=== PATIENT | female | born 1950 ===

== ENCOUNTER 2016-10-24 10:43 | Observation (INO) | payer MEDICARE, OTHER ==
[2016-10-24] MEDS ORDERED: NORMAL SALINE 1,000 ML IV ONE ×2 (11:01→13:07)
--- OUTSIDE RECORDS SUMMARY | 2016-10-24 11:05 | XMS REPORT | Continuity of Care Document ---
:1950 Author Organization [facility] [place] [address] Care Team Providers Name Role Phone Unavailable Primary Care Provider Unavailable Source Comments This disclosure is being made pursuant to the [employer] program and maynot contain all information available regarding this patient.[facility] Active Allergies and Adverse Reactions Not on File Current Medications Be aware that medications may not be up to date as of this document. Alwaysverify current medications with the patient. Not on file Active Problems Not on file Social History Tobacco Use Types Packs/Day Years Used Date Never Assessed Plan of Care Health Maintenance Due Date Last Done Comments Retired-Pertussis Vaccine Adult 1970 Retired-Tetanus Vaccine Adult 1970 Pap Smear 02/04/1972 Mammogram 1991 Colonoscopy 2001 Well Adult Visit 2001 Zoster Vaccine 60+ 2011 Retired-INFLUENZA VACCINE 04/01/2015 Results from Last 3 Months Not on file
--- OUTSIDE RECORDS SUMMARY | 2016-10-24 11:06 | XMS REPORT | Continuity of Care Document ---
:1950 Author Organization [facility] ([facility]) Address [address] [place] [address] Phone [phone] Care Team Providers Name Role Phone Amanda Duncan Primary Care Provider [phone] Source Comments This disclosure is being made pursuant to the Care Everywhere program, applicable federal and state laws, and may not contain all informaitonavailable regarding this patient.[facility] ([facility]) Active Allergies and Adverse Reactions No Known Allergies Current Medications Prescription Sig. Disp. Refills Start End Status Date Date gabapentin 300 mg Take 300 mg by Active capsule mouth 2 times daily. escitalopram oxalate Take 20 mg by 1 07/01/20 Active 20 mg tablet mouth daily. 15 clopidogrel 75 mg Take 75 mg by 01/16/20 Active tablet mouth daily. [address] the 03/07/20 Active SL tablet tongue every 5 13 minutes as needed. cholecalciferol Take 1,000 Units Active (VITAMIN D3) 1,000 by mouth daily. unit capsule insulin glargine Inject 30 Units Active (LanTUS SOLOSTAR) subcutaneously 2 100 unit/mL (3 mL) times daily. injection pen levothyroxine 200 Take 200 mcg by Active mcg tablet mouth every morning before breakfast. lisinopril 20 mg Take 20 mg by Active tablet mouth 2 times daily. atorvastatin 80 mg Take 80 mg by Active tablet mouth every evening. cyanocobalamin Take 500 mcg by Active (VITAMIN B-12) 500 mouth daily. mcg tablet metoPROLol tartrate Take 75 mg by Active 50 mg tablet mouth 2 times daily. aspirin 81 mg EC Take 81 mg by Active tablet mouth daily. isosorbide Take 60 mg by Active mononitrate 60 mg CR mouth every tablet morning. metFORMIN 500 mg XR Take 1,000 mg by Active tablet mouth 2 times daily. acetaminophen 325 mg Take 2 tablets 120 tablet 3 09/20/19 Active tablet (650 mg total) by 17 mouth every 4 hours. iron 18 mg tablet Take 18 mg by Active mouth daily. HYDROmorphone 2 mg Take 1 tablet (2 40 tablet 0 10/20/19 Active tablet mg total) by mouth 17 every 4 hours as needed. dexamethasone 4 mg Take 2 tab (8 mg) 4 tablet 10/20/19 Active tablet by mouth daily on 17 Days 2 and 3 after chemo. ondansetron 8 mg Take 1 tablet (8 12 tablet 10/20/19 Active tablet mg total) by mouth 17 every 8 hours as needed. PROchlorPERAZINE 10 Take 1 tablet (10 30 tablet 10/20/19 Active mg tablet mg total) by mouth 17 every 6 hours as needed. lidocaine 5 % patch Apply 1 patch on 30 Patch 10/20/19 Active the skin daily. 17 Apply for 12 hours and remove for 12 hours, then repeat cycle. docusate 100 mg Take 1 capsule 90 capsule 3 09/20/19 Discontinued capsule (100 mg total) by 17 017 mouth 2 times daily. enoxaparin 40 mg/0.4 Inject 40 mg 28 Syringe 0 09/20/19 Discontinued mL injection syringe subcutaneously 17 017 daily. HYDROmorphone 2 mg Take 1-2 tablets 60 tablet 0 09/20/19 Discontinued tablet (2-4 mg total) by 17 017 mouth every 4 hours as needed. simethicone 80 mg Take 1 tablet (80 90 tablet 3 09/20/19 Discontinued chewable tablet mg total) by mouth 17 017 4 times daily as needed for Flatulence. sennosides 8.6 mg Take 1-2 tablets 90 tablet 3 09/20/19 Discontinued tablet (8.6-17.2 mg 17 017 total) by mouth 2 times daily as needed. sodium & potassium Take 1 tablet (250 42 tablet 0 09/20/19 phosphates 250 mg mg total) by mouth 17 017 tablet 3 times daily for 14 days. HYDROmorphone 2 mg Take 1 tablet (2 20 tablet 0 09/30/19 Discontinued tablet mg total) by mouth 17 017 every 4 hours as needed. Earliest Fill Date: 09/29/16 HYDROmorphone 2 mg Take 1 tablet (2 40 tablet 0 09/30/19 Discontinued tablet mg total) by mouth 17 017 every 4 hours as needed. trimethoprim-sulfame Take 1 tablet by 14 tablet 0 10/05/19 thoxazole 160-800 mg mouth 2 times 17 017 per tablet daily for 7 days. lidocaine 5 % patch Apply 1 patch on 30 Patch 3 10/20/19 Discontinued the skin daily. 17 017 Apply for 12 hours and remove for 12 hours, then repeat cycle. Active Problems Problem Noted Date BRCA1 positive 10/19/2016 Acute blood loss anemia 09/20/2016 Hypokalemia 09/20/2016 Acute postoperative pain 09/20/2016 Ovarian cancer on right 09/17/2016 Angina, class II 08/26/2016 Multiple sclerosis 07/15/2015 Hypothyroidism 07/15/2015 Hyperlipidemia 07/15/2015 Hypertension 07/15/2015 Atherosclerosis of coronary artery bypass graft of [place] heart without 2013 angina pectoris Presence of stent in coronary artery 01/22/2013 Presence of coronary angioplasty implant and graft 01/22/2013 Back pain 01/04/2013 Peripheral vascular disease 12/22/2012 Claudication 12/22/2012 Special screening for malignant neoplasms, colon 04/04/2012 Overview: Overview: Family history of colon cancer in father at age 67. Status post colonoscopy, December,. Status post colonoscopy 02/15/2012 with finding of a 3-4 cm villous adenoma with high-grade dysplasia of the right colon, and a less than 1 cm cecal polyp with tubular adenoma histology. Repeat colonoscopy in one year. Stress incontinence in female 12/14/2011 Chronic coronary artery disease 09/01/1996 Overview: CARDIOVASCULAR PROCEDURE CATH Cath 100% pLAD, 80% dCx, 100% OM, 90% RPDA, DAVIDSON-LAD open but sequential to Cx occluded, V-PDA open. Mild ant-lat hypo LVEF 50% 04/17/07 Cath:LMCA: Abnormal.20% distal LM. LAD: 100% proximal LAD. LCx: Abnormal.90% small distal OM (1.5 mm vessel) RCA: Abnormal.Moderate diffuse irrregular disease. 100% ostium RPDA. 60% focal mid and distal RCA.Ramus: Abnormal.30% proximal IR. Cardiac Grafts- There is a DAVIDSON graft that originates at the DAVIDSON and attaches to the 1st Diag.Graft fills large Dx distal and proximal to graft insertion.- There is a Vein graft that originates at the Aorta Right and attaches to the R PDA.80% RPDA distal to graft insertion - new since cath 04/17/07 - 2.0 mm vessel.- There is a Vein graft that originates at the Aorta Left and attaches to the Mid LAD.LAD fills retrograde with diffuse disease proximal to graft, LAD 100% distal to SP arising immediately distal to graft insertion. 04/09/2012 Cath:Very mild posterobasal hypokinesis, est. LVEF 55%. 20% distal LM, 100% proximal LAD, 90% small M3, diffuse 30-50% RCA, 60% just proximal to crux, 80% proximal RPDA, 80% and 90% mid RPDA distal to SVG. Patent SVG-LAD with diffuse disease proximal and distal to graft insertion, patent SVG-RPDA with 80% and 90% focal stenoses just distal to graft insertion, patent DAVIDSON-Dx. Successful intervention on Cx-M3 - 2.012 [place] PTCA, 2.25/07 Xience Xpedition to final 0% at site of stent. Diffuse disease in the M3 distal to the stent. Successful intervention on RPDA through the SVG - 2.0/12 [place] PTCA, . Xience Xpedition to final 0%. 11/23/2012 ECHO Echo: Echo reported normal LV function 04/19/2014 VASCULAR VERONICA: Normal 11/23/2012 Exercise VERONICA:Right:Resting and post exercise VERONICA: within normal limits. Greater toe pressure 115mmHg.Left: Resting and post exercise VERONICA: within normal limits. Greater toe pressure 103mmHg.ABIs with exercise performed bilaterally. 08/16/2013 Vasodepressor syncope Resolved Problems Problem Noted Date Resolved Date Periorbital edema 07/15/2015 08/26/2016 Overview: - recurrent periorbital edema with suspected cellulitis. Last Assessment & Plan: - Etiology of periorbital edema is unclear. - Pt with recurrent admission every 2-3 months for the last 2 years; treated with IV/PO antibiotics. Per family report pt has fever and constitutional symptoms during this episodes. - Picture of the most recent episode shows bilateral periorbital edema with blotchy erythema over the eyelids (most intense), and central face (forehead, bridge of nose, chin); not consistent with rina sipela. Episodes not always unilateral. No h/o facial trauma recently. - Reported prior W/U by ENT and ophthalmology has been negative. - Will request more records from [facility] including: discharge summaries, H&P, consultation reports, images from prior CTs/ MRIs. - Labs today: CBC, BMP, LFT, ESR/CRP. - Follow up in ID clinic in 4 weeks after review of the information above. - If episodes recur prior to appointment, pt is encouraged to come to [facility] ED if possible for further evaluation. Type 2 diabetes mellitus 12/28/2010 08/25/2016 Most Recent Encounters Date Type Specialty Providers Description 10/20/2016 Telephone Cancer Center Deborah Cordova, Chief Comp: RN Appointment Info 10/19/2016 Office Visit Cancer Center Default, Other Dx: Ovarian cancer Billg - Defo on right Cynthia Hugo RD LD 10/19/2016 Office Visit Cancer [place] Default, Other Dx: BRCA1 genetic Billg - 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 (Primary Dx) Reny Palmer CGC 10/19/2016 Hospital Cancer Infusion Juan Francisco De Oliveira, Dx: Rib pain on left Encounter Center MD side (Primary Dx) 10/19/2016 Office Visit Pathology Juan Francisco De Oliveira, Chief Comp: Patient MD Reported Reason For Lab Services, Visit Pfp 10/19/2016 Office Visit OBG Reproductive Juan Francisco De Oliveira, Dx: Chemotherapy MD management, Clinic, Paper Reeler Onc encounter for Advanced (Primary Dx) Practice Provider 10/19/2016 Orders/Notes Account Liaison Tia Diaz, Chief Comp: Other ACADEMIC AFFAIRS SPECIALIST 10/19/2016 Pharmacy Visit 10/18/2016 Office Visit [facility] Reproductive Juan Francisco De Oliveira, Chief Comp: Patient MD Reported Reason For Clinic, Paper Reeler Onc Visit Advanced Practice Provider 10/14/2016 Telephone Cancer Center Deborah Cordova, Chief Comp: RN Follow-up 10/12/2016 Telephone Cancer Center Jeni Nicholson Chief Comp: Cindy Baez RN 10/12/2016 Orders/Notes Cancer Center Jeni Nicholson RN 10/12/2016 Telephone Cancer Center Reny Palmer Chief Comp: Discuss A, CGC Test Results 10/06/2016 Office Visit O[facility] Reproductive Srinivasa, Chief Comp: Patient MD Mario Alberto Reported Reason For Visit 10/06/2016 Orders/Notes Obstetrics Uri, [place] K, 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 10/04/2016 Office Visit Cancer Center Default, Other Dx: Family history Billg - Defo of breast cancer Juan Francisco De Oliveira, (Primary Dx) Reny Al, DOT 10/04/2016 Office Visit [facility] Repro[facility] Srinivasa, Dx: Postoperative MD Mario Alberto urinary tract Juan Francisco De Oliveira, infection (Primary MD Dx) 10/04/2016 Office Visit Internal Medicine - Shahram Colón, Dx: Low hemoglobin Primary MD (Primary Dx) Cynthia An, ANNALISE 10/04/2016 Office Visit Pathology Cynthia An, Chief Comp: Patient ANNALISE Reported Reason For Lab Services, Visit Irl 09/29/2016 Telephone [facility], Chief Comp: RN Follow-up 09/29/2016 Telephone [facility], Chief Comp: Return RN Call 09/29/2016 [facility] Cynthia Cevallos, Dx: Ovarian cancer, RN unspecified laterality (Primary Dx) 09/21/2016 Nurse Triage General Care Candy Baumann Chief Comp: IP Inpatient - Adult E, superintendent distribution Follow-up Call 09/21/2016 Orders/Notes Cancer [place] Juan Francisco De Oliveira MD 09/21/2016 Orders/Notes Cancer [place] Juan Francisco De Oliveira MD 09/17/2016 [facility] Juan Francisco De Oliveira, Dx: Adnexal mass - Encounter Inpatient - Adult (Primary Dx) 09/20/2016 09/17/2016 Surgery General Surgery Juan Francisco De Oliveira, OOPHORECTOMY, ABDOMINAL, Abd Hernia repair 08/31/2016 Office Visit [facility] Repro[facility] Juan Francisco De Oliveira, Chief Comp: Patient MD Reported Reason For Visit 08/31/2016 Office Visit Internal Medicine - Default, Other Chief Comp: Patient Specialty Billg - Defo Reported Reason For (Zo06), Msc Surg Visit Co-Managemnt Cl 08/27/2016 Telephone Cardiac Gissell Fregoso Chief Comp: Results Rehabilitation 08/27/2016 Orders/Notes Heart and Vascular Gissell Fregoso MD 08/27/2016 Telephone Internal Medicine - Cynthia An, Chief Comp: Primary 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 Appointment Request 08/26/2016 [facility] Heart and Vascular Reva, Dx: Syncopal Encounter MD Karyna episodes 08/26/2016 [facility] Heart and Vascular Jose, Chief Comp: Patient Encounter MD Berenice Reported Reason For Visit 08/26/2016 Office Visit OBG Reproductive Juan Francisco De Oliveira, Dx: Ovarian mass, MD right (Primary Dx) 08/26/2016 Office Visit Internal Medicine - Default, Other Dx: Anemia, Specialty Billg - Defo unspecified type Bethany Rueda, (Primary Dx) (Zo06), Msc Surg Co-Managemnt Cl 08/26/2016 Office Visit Pathology Juan Francisco De Oliveira, Dx: Syncopal MD episodes Lab Services, Pf 08/26/2016 [facility] Radiology Avelino Obrien, Dx: Syncopal Encounter MD episodes 08/26/2016 [facility] Anesthesiology Juan Francisco De Oliveira, Chief Comp: Patient Encounter MD Reported Reason For Visit 08/26/2016 Office Visit Cardiac Gissell Fregoso MD Dx: Ischemic Rehabilitation cardiomyopathy (Primary Dx) 08/26/2016 Office Visit Cardiac Gissell Fregoso MD Dx: Murmur Rehabilitation 08/25/2016 Anesthesia Event General Surgery Corbin Sánchez 08/23/2016 Telephone Cardiac Gissell Fregoso MD Chief Comp: Other Rehabilitation 08/09/2016 [facility] Radiology Juan Francisco Fuchs, Dx: Syncopal Encounter MD episodes 08/09/2016 Office Visit OBG Reproductive Juan Francisco De Oliveira, Dx: Syncopal MD episodes (Primary Dx) Immunizations Name Dates Previously Given Next Due Influenza 06/01/2016,05/10/2015,05/09/2014 Influenza, PF 04/26/2013,05/04/2012 Influenza, unspecified 06/01/2015 Pneumococcal Polysaccharide, PPSV23 07/15/2014,06/10/2014,04/24/2008 (Pneumovax 23) Social History Tobacco Use Types Packs/Day Years Used Date Never Smoker Smokeless Tobacco: Never Used Last Filed Vital Signs Vital Sign Reading Time Taken Blood Pressure 135/64 10/19/2016 4:25 PM CDT Pulse 57 10/19/2016 4:10 PM CDT Temperature 36.1 C (97 F) 10/19/2016 12:33 PM CDT Respiratory Rate 16 10/19/2016 12:33 PM CDT Height 1.651 m (5' 5") 10/04/2016 12:38 PM 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 Weight 63.95 kg (140 lb 15.8 oz) 10/19/2016 9:35 AM CDT Body Mass Index 23.46 10/19/2016 9:35 AM CDT Oxygen Saturation 100% 10/19/2016 12:33 PM CDT Plan of Care Date Type Specialty Providers Description 03/21/2017 Appointment OBG Reproductive De OliveiraJuan Francisco castro MD Chief Comp: Patient [address] [place] [address] Visit [phone] (Fax) Health Maintenance Due Date Last Done Comments Hepatitis B Vaccine (1 of 3 - 1950 Primary Series) Tdap Vaccine 1962 DIABETIC: Cholesterol 1969 Diabetic: Hdl 1969 Diabetic: Ldl 1969 DIABETIC: Microalbumin 1969 DIABETIC: Triglycerides 1969 Td Vaccine 1969 Cervical Cancer Screening 1981 Mammogram 1991 Colonoscopy 02/02/2001 Zoster Vaccine 2011 DIABETIC: Foot Exam 07/15/2015 DIABETIC: Retinal Eye Exam 07/15/2015 Osteoporosis Screening (DXA 02/04/2016 Bone Density) Pneumococcal Vaccine (1 of 2 02/04/2016 07/15/2014, - PCV13) 06/10/2014, 04/24/2008 DIABETIC: Hemoglobin A1C 04/06/2017 10/04/2016 HCV Screening Completed 07/15/2015 Influenza Vaccine: Seasonal Completed 06/01/2016, Additional history exists 06/01/2015, 05/10/2015 Procedures from Last 3 Months Procedure Name Priority Date/Time Associated Comments Diagnosis ABSTRACTED BY Routine 09/19/2016 9:07 PM Adnexal mass Results for this BILLING STAFF PLUMBING ENGINEER procedure are in the results section. OOPHORECTOMY, 09/17/2016 7:30 AM Adnexal mass ABDOMINAL, Abd PLUMBING ENGINEER Hernia repair Case Notes hernia repair + Unilateral salpingooophorectomy Results from Last 3 Months DIFFERENTIAL (10/19/2016 9:20 AM)Only the most recent of3 resultswithin the time period is included. Component Value Range % Neutrophils-Auto Diff 63.9 % Neutrophils-Auto Diff 4700 2175-6988 /MM3 % Lymphocytes-Auto Diff 22.9 % Lymphocytes-Auto Diff 2520 451-7570 /MM3 % Monocytes-Auto Diff 8.8 % Monocytes-Auto Diff 650 130-860 /MM3 % Eosinophils-Auto Diff 3.7 % Eosinophils-Auto Diff 270 40-390 /MM3 % Basophils 0.4 % Basophils-Auto Diff 30 10-136 /MM3 % Immature Granulocytes-Auto Diff 0.3 % Immature Granulocytes-Auto Diff 20 /MM3 Specimen Whole Blood CBC (COMPLETE BLOOD COUNT) (10/19/2016 9:20 AM)Only the most recent of3 resultswithin the time period is included. Component Value Range WBC Count 7.4 3.7-10.5 K/MM3 RBC Count 3.35(L) 4.00-5.20 M/MM3 Hemoglobin 10.2(L) 11.9-15.5 g/dL Hematocrit 31(L) 35-47 % MCV (Mean Corpuscular Volume) 94 82-99 FL MCH (Mean Corpuscular Hemoglobin) 30 25-35 PG MCHC (Mean Corpuscular Hemoglobin Concentration) 33 32-36 % Platelet Count 254 150-400 K/MM3 MPV (Mean Platelet Volume) 10.1 9.4-12.3 FL RBC Dist Width-STD 47.0(H) 36.4-46.3 FL RBC Distrib Width 13.8 9.0-14.5 % Nucleated RBC 0 /100 WBC Specimen Whole Blood CANCER ANTIGEN 125 (10/19/2016 9:20 AM)Only the most recent of2 resultswithin the time period is included. Component Value Range CA-125 (Cancer Antigen 125) 43(H) <=34 U/mL Specimen Blood CREATININE (10/19/2016 9:20 AM) Component Value Range Creatinine 1.1(H)Comment: 0.5-1.0 mg/dL Creatinine switched to enzymatic method on 12/08/2010.GFR equation switched to IDMS-traceable MDRD equation on 12/08/2010. Calculated GFR values are not valid in clinical settings where serum creatinine is changing. Calculated GFR 50(L) >60 mL/min/1.73 m2 Specimen Blood BILIRUBIN, TOTAL (10/19/2016 9:20 AM) Component Value Range Bilirubin Total 0.3 <=1.2 mg/dL Specimen Blood CBC WITH DIFFERENTIAL (10/19/2016 9:20 AM)Only the most recent of3 resultswithin the time period is included. Specimen Whole Blood Narrative The following orders were created for panel order CBC WITH DIFFERENTIAL. Procedure Abnormality Status --------- ------ CBC (COMPLETE BLOOD COUNT)[[id number]] AbnormalFinal result DIFFERENTIAL[[id number]] Final result Please view results for these tests on the individual orders. MISCELLANEOUS TEST, GENETIC (10/04/2016 3:21 PM) Component Value Range Miscellaneous Test, Genetic See ScanComment: Find scanned test results for Ensyn CDx with hereditary breast and ovarian cancer panel by going to the Order Report, then clicking the Results Document hyperlink. For [employer] user the scan result report is not available, please contact physician for details. Specimen Other URINE MICROSCOPIC (10/04/2016 2:53 PM) Component Value Range White Blood Cells, Urine 20(H) 0-5 /HPF Red Blood Cells, Urine 2 0-2 /HPF Squamous Epithelial Cells, Urine 120(H) <=10 /LPF Specimen Urine URINALYSIS (10/04/2016 2:53 PM) Component Value Range Color, Urine Yellow Straw, Pale Yellow, Yellow, Clear, None Clarity, Urine Clear Clear pH, Urine 6.0 <9.0 Glucose, Urine Negative Negative Blood, Urine Negative Negative Ketones, Urine Negative Negative Protein, Urine 1+(A) Negative Urobilinogen, Urine 1+(A) Normal Bilirubin, Urine Negative Negative Leukocyte Esterase, Urine 3+(A) Negative Nitrite, Urine Negative Negative Spec Centre, Urine 1.020 1.000-1.030 Specimen Urine URINE CULTURE, ROUTINE AEROBIC (10/04/2016 2:53 PM) Component Value Range Quantitative Culture Mixed Luna (Urogenital) suggesting an improperly collected specimen(A) Specimen Culture - Urine, Midstream clean catch SOLUBLE TRANSFERRIN RECEPTOR (10/04/2016 9:45 AM) Component Value Range Soluble Transferrin Receptor 2.4 1.9-4.4 mg/L Transferrin Receptor-Ferritin Index 0.8 <=1.5 Specimen Blood BLOOD CELL MORPHOLOGY (10/04/2016 9:45 AM) Component Value Range Large Platelet Present Specimen Whole Blood VITAMIN B12 (10/04/2016 9:45 AM)Only the most recent of2 resultswithin the time period is included. Component Value Range Vitamin B12 527Comment: 211-946 pg/mL New analytical immunoassay with different reference range instituted 06/26/2013 AT 830AM Normal 211 - 946 pg/mL [id number] - 210 pg/mL Deficient<150pg/mL Specimen Blood RETICULOCYTES (10/04/2016 9:45 AM)Only the most recent of2 resultswithin the time period is included. Component Value Range RBC Count 2.94(L) 4.00-5.20 M/MM3 Retic-% 3.0(H) 0.4-2.1 % Automated Retic, Absolute Count 88.5 12.0-130.0 K/MM3 Specimen Whole Blood IRON PANEL (IRON, TRANSFERRIN, TIBC AND % SATURATION) (10/04/2016 9:45 AM)Only the most recent of2 resultswithin the time period is included. Component Value Range Iron, Blood 52 37-145 g/dL Transferrin 185(L) 200-360 mg/dL Iron % Saturation 20Comment: 15-50 % Iron % saturation is a calculated parameter derived from the iron and transferrin plasma concentrations. Iron % saturation is not reliable when there are high ferritin concentrations greater than 1,200 ng/mL. TIBC (Total Iron Binding Capacity) 265Comment: 250-425 g/dL TIBC is a calculated parameter derived from the transferrin plasma concentration. Specimen Blood FERRITIN (10/04/2016 9:45 AM)Only the most recent of2 resultswithin the time period is included. Component Value Range Ferritin 827.2(H) 13.0-150.0 ng/mL Specimen Blood HEMOGLOBIN A1C (10/04/2016 9:45 AM) Component Value Range Hemoglobin A1c 6.0Comment: 4.8-6.0 % Glycemic Control Guidelines: Non-diabetic <6% Goal <7% Therapeutic Action >8% Estimated Average Glucose 126Comment: mg/dL The estimated average glucose (eAG) calculated from the HbA1c changed on 20/03.See Laboratory Bulletins in the Department of Pathology Laboratory Services Handbook for a full discussion.Not e that the new calculated glucose will now be lower.The A1c result is unchanged. Specimen Whole Blood BLOOD GLUCOSE, BEDSIDE (09/20/2016 11:27 AM)Only the most recent of11 resultswithin the time period is included. Component Value Range Glucose, Accu-Chek 59(L) 65-99 mg/dL Specimen Blood, capillary PHOSPHORUS (09/20/2016 7:30 AM) Component Value Range Phosphorus 1.5(L)Comment:New reference range installed 05/13/15. 2.5-4.5 mg/ dL Specimen Blood MAGNESIUM (09/20/2016 7:30 AM) Component Value Range Magnesium 1.3(L) 1.5-2.9 mg/dL Specimen Blood BASIC METABOLIC PANEL W/ CALCIUM (CHEM 8) (09/20/2016 7:30 AM)Only the most recent of4 resultswithin the time period is included. Component Value Range Sodium 135 135-145 mEq/L Potassium 3.6 3.5-5.0 mEq/L Chloride 100 95-107 mEq/L CO2 21(L) 22-29 mEq/L Anion Gap 14 8-18 mEq/L BUN 11 10-20 mg/dL Creatinine 0.9Comment: 0.5-1.0 mg/dL Creatinine switched to enzymatic method on 12/08/2010.GFR equation switched to IDMS-traceable MDRD equation on 12/08/2010. Calculated GFR values are not valid in clinical settings where serum creatinine is changing. Glucose 85Comment: 65-99 mg/dL The Expert Committee on the Diagnosis and Classification of Diabetes has defined impaired fasting glucose as greater than or equal to 100 mg/dL but less than 126 mg/dL.(Diabetes Care 28 (Suppl 1)S41,2005) Calcium 9.3 8.5-10.5 mg/dL Calculated GFR 63 >60 mL/min/1.73 m2 Specimen Blood CBC (COMPLETE BLOOD COUNT) (09/20/2016 7:30 AM)Only the most recent of4 resultswithin the time period is included. Component Value Range WBC Count 6.0 3.7-10.5 K/MM3 RBC Count 2.83(L) 4.00-5.20 M/MM3 Hemoglobin 8.6(L) 11.9-15.5 g/dL Hematocrit 27(L) 35-47 % MCV (Mean Corpuscular Volume) 95 82-99 FL MCH (Mean Corpuscular Hemoglobin) 30 25-35 PG MCHC (Mean Corpuscular Hemoglobin Concentration) 32 32-36 % Platelet Count 155 150-400 K/MM3 MPV (Mean Platelet Volume) 10.2 9.4-12.3 FL RBC Dist Width-STD 49.3(H) 36.4-46.3 FL RBC Distrib Width 14.3 9.0-14.5 % Nucleated RBC 0 /100 WBC Specimen Whole Blood TITLE ABSTRACTOR OR CASE (09/19/2016 9:07 PM) Juan Francisco Blank MD 09/19/20169:07 PM OR CASE: OOPHORECTOMY, ABDOMINAL Post-Op Procedure Note General Information: Date: 09/17/16 Time: 729 Location: MAIN OR OR Room: [facility] OR Service: Gynecology Log ID: [id number] Operation/Procedure: Exploratory Laparotomy Lysis of Adhesions Bilateral Salpingo Oophorectomy Bilateral Pelvic and Paraaortic Lymph Node Dissection Infracolic and Infragastric Omentectomy Peritoneal Biopsies Diaphragm Smears Excision of Omental Implants Pre-operative diagnosis: Pelvic Mass 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 No palpable left adnexa. Surgically absent uterus and cervix. Laparotomy: no ascites upon entry. Filmy adhesions of small bowel and omentum to anterior abdominal wall mesh. Enlarged, fluid filled right fallopian tube with slightly enlarged for age ovary. Left ovary and tube are normal appearing. No enlarged lymphadenopathy. 4x2cm omental implant at site of prior ileal-transverse colon anastamosis. Frozen section returned as fat necrosis. Additional 2x2cm implant in the infracolic omentum also fat necrosis on frozen section. Otherwise normal appearing omentum without evidence of intraabdominal metastatic disease. No visible disease was present at the conclusion of the case. Blood Loss: 50* ml Implants: * No implants in log * Specimens: ID Type Source Tests Collected by Time Destination 1 : peritoneal washings with heprin 1,000 units Cytology Cytology Specimen CYTOLOGY NON-TITLE ABSTRACTOR EXAM Juan Francisco De Oliveira MD 09/17/2016 0823 2 : right tube and ovary Surgical Pathology Surgical Pathology Specimen SURGICAL PATHOLOGY EXAM Juan Francisco De Oliveira MD 09/17/2016 0848 3 : lefttube and ovary Surgical Pathology Surgical Pathology Specimen SURGICAL PATHOLOGY EXAM Juan Francisco De Oliveira MD 09/17/2016 0900 4 : omentum Surgical Pathology Surgical Pathology Specimen SURGICAL PATHOLOGY EXAM Juan Francisco De Oliveira MD 09/17/2016 0932 5 : omentum Surgical Pathology Surgical Pathology Specimen SURGICAL PATHOLOGY EXAM Juan Francisco De Oliveira MD 09/17/2016 0950 6 : omentum #2 Surgical Pathology Surgical Pathology Specimen SURGICAL PATHOLOGY EXAM Juan Francisco De Oliveira MD 09/17/2016 1002 8 : left pelvic side wall peritoneum Surgical Pathology Surgical Pathology Specimen SURGICAL PATHOLOGY EXAM Juan Francisco De Oliveira MD 09/17/2016 1010 9 : left pelvic lymph nodes Surgical Pathology Surgical Pathology Specimen SURGICAL PATHOLOGY EXAM Juan Francisco De Oliveira MD 09/17/2016 1011 10 : left para aorticlymph nodes Surgical Pathology Surgical Pathology Specimen SURGICAL PATHOLOGY EXAM Juan Farncisco De Oliveira MD 09/17/2016 1020 11 : left para colic gutter biopsy Surgical Pathology Surgical Pathology Specimen SURGICAL PATHOLOGY EXAM Juan Francisco De Oliveira MD 09/17/2016 1021 12 : right pelvic side wall Surgical Pathology Surgical Pathology Specimen SURGICAL PATHOLOGY EXAM Juan Francisco De Oliveira MD 09/17/2016 1023 13 : right pelvic lymph nodes Surgical Pathology Surgical Pathology Specimen SURGICAL PATHOLOGY EXAM Juan Francisco De Oliveira MD 09/17/2016 1025 14 : right para aortic Surgical Pathology Surgical Pathology Specimen SURGICAL PATHOLOGY EXAM Juan Francisco De Oliveira MD 09/17/2016 1026 15 : anterior cul de sac Surgical Pathology Surgical Pathology Specimen SURGICAL PATHOLOGY EXAM Juan Francisco De Oliveira MD 09/17/2016 1048 16 : posterior cul de sac Surgical Pathology Surgical Pathology Specimen SURGICAL PATHOLOGY EXAM Juan Francisco De Oliveira MD 09/17/2016 1048 17 : right para colic gutter biopsy Surgical Pathology Surgical Pathology Specimen SURGICAL PATHOLOGY EXAM Juan Francisco De Oliveira MD 09/17/2016 1050 18 : right diaphagmatic smear Cytology Cytology Specimen CYTOLOGY NON-TITLE ABSTRACTOR EXAM Juan Francisco De Oliveira MD 09/17/2016 1051 19 : left diaphagmatic smear Cytology Cytology Specimen CYTOLOGY NON-TITLE ABSTRACTOR EXAM Juan Francisco De Oliveira MD 09/17/2016 1054 Complications: None, patient tolerated the procedure well Condition: Stable Operative Report Completion Indications: 66 yo F with adnexal mass Procedure Details: Patient was brought to the operating room where general anesthesia was found to be adequate.She was prepped and draped in the usual sterile fashion and a Senior catheter was placed in the bladder.She was placed in lithotomy position.A midline skin incision was made with a scalpel and carried down to the rectus fascia.The fascia was incised with Rebollar scissors and opened the length of the skin incision. The anterior abdominal wall mesh was divided sharply. The peritoneum was entered sharply and extended the length of the skin incision.Upon entering the abdomen, washings were collected.Exploration of the abdomen and pelvis was undertaken with findings noted above.The small bowel adhesions to the anterior abdominal wall mesh and the pelvic mass were taken down sharply. Once adequately freed, a Bookwalter retractor was attached to the bed. The patient's bowel was first fully examined to insure there were no defects in the serosa. The bowel was then packed cephalad with moist laparotomy sponges and retractors were placed for optimal visualization of the pelvis. The right retroperitoneum was opened anteriorly and posteriorly. The right ureter was identified. The infundibulopelvic ligament was isolated, doubly clamped, transected and doubly ligated. The right adnexal mass (dilated fallopian tube) was then freed from its peritoneal attachments using cautery and suture ligation. 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 The colon was then mobilized along the white line of Toldt. The left retroperitoneum was opened and the left ureter identified. A left tube and ovary were clearly visible.The IP ligament was isolated, clamped, transected, and ligated. The remaining peritoneal attachments were transected with cautery and the left tube and ovary sent to pathology. Exploration of the abdomen revealed two separate areas of nodularity concerning for tumor in the omentum. These were both adherent to bowel near site of prior ileal-colonic anastamosis. Using sharp dissection, the adhesions to bowel were taken down. Once freed, the omental adhesions were divided with cautery. Both nodules were sent to pathology for frozen section revealing fat necrosis without evidence of metastatic cancer. There was no other disease visible within the abdominal cavity so surgical staging was undertaken. The omentum was dissected from the patient's transverse colon between the hepatic and the splenic flexures. Once dissected from the hepatic flexure and the mesentery, the lesser sac was entered. The omental pedicles were sealed and transected with the Ligasure. The infragastric omentum was dissected off the greater curvature of the stomach to where it joined the infracolic omentum. The omentum at the splenic flexure was then mobilized with the Ligasure. The infracolic and infragastric omentum were sent to Pathology. Bilateral pelvic lymphadenectomies were then undertaken. The superior border of the lymphadenectomy was the bifurcation of the aorta, the inferior border was the deep circumflex iliac vein, the lateral border was the psoas muscle, the medial border was the superior vesical artery, and the posterior border was the obturator nerve. Surgical clips were placed to achieve hemostasis of lymphovascular channels. The obturator and genitofemoral nerves were spared bilaterally. There were no injuries to the ureters or major blood vessels. Bilateral paraaortic lymphadenectomies were then undertaken. Lymph nodes were removed to the level of the inferior mesenteric artery bilaterally. Surgical clips were placed to achieve hemostasis of lymphovascular channels. Both ureters were well visualized at all times. Biopsies of the peritoneum were obtained from the anterior cul-de-sac, the bilateral pelvic sidewalls, and the bilateral paracolic gutters. Bilateral hemidiaphragm smears were obtained. The abdomen was irrigated copiously with warm normal saline. All lymph node beds, and all vascular pedicles were visualized and noted to be hemostatic. The laparotomy sponges and retractors were removed from the abdomen. The rectus fascia was examined and noted to be well delineated along the entire length of the incision.The mesh appeared to address a prior small umbilical hernia.Given the excellent condition of the fascia, the decision was made to incorporated it with the mesh using a delayed absorbable suture (1-loop PDS), with one suture starting superiorly and the other inferiorly, approximating the previously divided anterior abdominal wall mesh along with the healthy appearing overlying fascia. These sutures were then tied together in the midline after ensuring that there was no breach in the integrity of the bowel during the fascial closure.Subcutaneous tissues were ensured to be hemostatic. The skin was closed with bonnie, and a sterile dressing was applied. The patient tolerated the procedure well.All sponge, needle, and instrument counts were correct at the end of the case times two.She was taken to the recovery room in stable condition. Dr. De Oliveira was present and scrubbed for the entire procedure. Praveena Morse MD Attending Attestation: I was present, scrubbed, and participated in the entire procedure. Juan Francisco De Oliveira M.D. Division of Gynecologic Oncology Department of Obstetrics and Gynecology [facility] [phone] [email or web address] (09/17/2016 9:55 PM) Component Value Range Hemoglobin 9.8(L) 11.9-15.5 g/dL Specimen Whole Blood SURGICAL PATHOLOGY EXAM (09/17/2016 8:48 AM) Component Value Range Case Report Surgical Pathology Case: [id number] Authorizing Provider:Juan Francisco De Oliveira MDCollected: 09/17/2016 08:48 AM Ordering Location: Main OR Received:09/17/2016 08:54 AM Pathologist: Daniele Marina MD Intraop: Hailey Dao MD Specimens: A) - Ovary, right tube and ovary B) - Ovary, lefttube and ovary C) - Omentum, omentum D) - Omentum, omentum E) - Omentum, omentum #2 F) - Peritoneum, left pelvic side wall peritoneum G) - Lymph Node, left pelvic lymph nodes H) - Lymph Node, left para aorticlymph nodes I) - Peritoneum, left para colic gutter biopsy J) - Peritoneum, right pelvic side wall K) - Lymph Node, right pelvic lymph nodes L) - Lymph Node, right para aortic M) - Peritoneum, anterior cul de sac N) - Peritoneum, posterior cul de sac O) - Peritoneum, right para colic gutter biopsy Amendment This amendment is issued to correct the T staging in the Synoptic report. The previous version noted the staging was T1a. The correct staging should be T2a. The previous version of the report can be accessed through the Report History hyperlink. 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 Tumor 8.0 cm in greatest dimension. No lymphovascular or perineural invasion identified. B.Fallopian tube and ovary, left, salpingo-oophorectomy: Fallopian tube and ovary within normal limits. C.Omentum, resection: Fat necrosis and microcalcifications. No tumor identified. One lymph node negative for tumor (0/1). D.Omentum, resection: Fat necrosis and microcalcifications. No tumor identified. E.Omentum, #2, resection: Fat necrosis and microcalcifications. No tumor identified. F.Peritoneum, left pelvic sidewall, biopsy: Benign fibroadipose tissue. G.Lymph nodes, left pelvic, resection: Six lymph nodes negative for tumor (0/6). H.Lymph nodes, left paraaortic, resection: Two lymph nodes negative for tumor (0/2). I.Soft tissue, left pericolic gutter, biopsy: Benign fibroadipose tissue. J.Peritoneum, right pelvic sidewall, biopsy: Benign fibroadipose tissue. K.Lymph nodes, right pelvic, resection: Four lymph nodes negative for tumor (0/4). L.Lymph node, left paraaortic, resection: One lymph node negative for tumor (0/1). M.Soft tissue, anterior cul de sac, biopsy: Benign fibroadipose tissue. N.Soft tissue, posterior cul de sac, biopsy: Benign fibroadipose tissue. O.Soft tissue, right pericolic gutter, biopsy: Benign fibrous tissue and muscle. I have personally reviewed this case and edited the report as necessary. Gross Description A.Received fresh for frozen section in a container labeled with Abbey Tan [facility] number and "right tube and ovary" is a 118 gram, 8.0 x 6.5 x 5.0 cm multinodular ovarian mass.There is a 3.0 x 2.2 x 1.0 cm fragment of attached pink-yellow soft tissue.No fallopian tube is identified. The ovary is intact with a recinos-white and smooth surface. Sectioning of the ovarian mass reveals a 75% to 85% recinos-light brown necrotic cut surface.A portion of the cut surface (approximately 10%) is white-recinos and dense. Warehouse Inventory Clerk sections are frozen as A1. Warehouse Inventory Clerk sections are submitted as follows: A1: frozen section remnant A2-A8: sales representative [employer] supplies sections of mass (recinos-white dense portion in A4 and A5 ) NIKITAF/nica B.Received fresh in a container labeled with Abbey Tan, [facility] number and "left tube and ovary" is a left salpingo oophorectomy consisting of a 2.2 x 2.0 x 1.0 cm ovary and a tortuous 6.0 cm long x 0.6 cm diameter fimbriated fallopian tube.The ovary is pink- white, smooth and cerebriform.Sectioning reveals a grossly unremarkable cut surface.The fallopian tube is pink-recinos and glistening.The lumen ranges from pinpoint to 0.2 cm diameter.It is grossly unremarkable. Warehouse Inventory Clerk sections are submitted as follows: B1: ovary B2: fallopian tube and cross section and fimbriated end NIKITAF/nica C.Received fresh for frozen section in a container labeled with DominickAbbey , [facility] number and "omentum" is a 9.0 x 4.2 x 3.0 cm fragment of dark yellow and firm fibroadipose tissue consiste nt with omentum resection.The specimen is serially sectioned to reveal a dark yellow, homogeneous, firm and mucinous cut surface of necrotic fat.No discrete masses or lesions are identified. Warehouse Inventory Clerk sections are frozen as C1. Warehouse Inventory Clerk sections are submitted as follows: C1: frozen section remnant C2: additional sections TERI/nica D.Received fresh in a container labeled with DominickAbbey , [facility] number and "omentum" is a 30.0 x 22.0 cm wide x up to 2.0 cm thick fragment of pink-yellow, lobulated fibroadipose tissue con sistent with omental resection.Sectioning reveals a single 0.5 x 0.5 x 0.4 cm firm nodule.The remaining cut surface if yellow-recinos, soft and lobulated fibroadipose tissue. Warehouse Inventory Clerk sections are submitted as follows: D1: nodule D2: omentum TERI/nica E.[facility], and "omentum #2" is a 3.3 x 2.3 x 1.8 cm unoriented segment of recinos- yellow, lobular to nodular fibrofatty tissue.Sec tioning reveals recinos-yellow, firm to gritty cut surfaces, grossly consistent with fat necrosis.Warehouse Inventory Clerk sections of nodule are frozen with remnant in E1. Additional sales representative marine supplies sections ofspecimen are submitted in E2. LRL/tkr F.Received fresh in a container labeled with Abbey Tan [facility] number, and "left pelvic side wall peritoneum" is a 2.0 x 2.0 x 0.5 cm fragment of fibromembranous tissue with adherent fibro adipose tissue.One surface is pink-red and smooth.The opposite is ragged, soft fibroadipose tissue. The specimen is serially sectioned and entirely submitted in F1. AJF/tkr G.Received fresh in a container labeled with Abbey Tan, hospital number, and "left pelvic lymph nodes" is a 5.0 x 4.5 x 3.5 cm aggregate of yellow-recinos fibroadipose tissue.There are six t an-pink possible lymph nodes ranging from 0.7 cm up to 2.7 cm. The possible lymph nodes are entirely submitted as follows: G1: one possible lymph node G2: one possible lymph node G3: one possible lymph node, bisected G4: one possible lymph node, bisected G5: one possible lymph node, bisected G6-G10: largest one possible lymph node, serially sectioned AJF/tkr H.Received fresh in a container labeled with Abbey Tan, [facility] number, and "left para aorticlymph nodes" is a 2.7 x 1.0 x 1.0 cm fragment of yellow-pink, soft fibroadipose tissue.The re are two red-pink possible lymph nodes that are 0.5 and 1.1 cm. The specimen is entirely submitted as follows: H1: one possible lymph node, bisected H2: one possible lymph node H3: remaining soft tissue AJF/tkr I.Received fresh in a container labeled with Abbey Tan, [facility] number, and "left para colic gutter biopsy" is a 2.0 x 1.7 x 0.3 cm fragment of pink-purple fibromembranous tissue.One olivera rface is smooth with the opposite surface exhibiting adherent recinos-yellow fibroadipose tissue. The specimen is serially sectioned and entirely submitted in I1. AJF/tkr J.Received fresh in a container labeled with Abbey Tan, [facility] number, and "right pelvic side wall" is a 1.7 x 1.0 x 0.4 cm fragment of purple- pink fibromembranous tissue.One surface i s smooth with the opposite surface exhibiting adherent yellow-recinos soft fibroadipose tissue. The specimen is serially sectioned and entirely submitted in J1. AJF/tkr K.Received fresh in a container labeled with Abbey aTn, [facility] number, and "right pelvic lymph nodes" is a 6.5 x 3.5 x 2.0 cm fragment. There are four recinos-pink possible lymph nodes ranging from 0.9 cm up to 3.6 cm. The possible lymph nodes are entirely submitted as follows: K1: one possible lymph node K2: one possible lymph node, bisected K3: one possible lymph node, bisected K4-K9 largest one possible lymph node, serially sectioned AJF/tkr L. Received fresh in a container labeled with DominickAbbey , [facility] number, and "right para aortic" is a 3.5 x 1.4 x 0.9 cm fragment of yellow-red fibroadipose tissue.Sectioning reveals a 1.2 x 0.7 x 0.5 cm recinos-purple possible lymph node.The possible lymph node is serially sectioned and entirely submitted in L1. AJF/tkr M.Received fresh in a container labeled with Abbey Tan , [facility] number, and "anterior cul de sac" is a 1.9 x 1.2 x 0.4 cm fragment of purple- pink fragment of fibromembranous tissue.One surface is smooth with the opposite ragged and exhibits minimal cautery. The specimen is serially sectioned and entirely submitted in M1. AJF/tkr N.Received fresh in a container labeled with Abbey Tan , [facility] number, and "posterior cul de sac" is a 2.0 x 0.4 x 0.2 cm fragment of purple- pink fibromembranous tissue. The specimen is entirely submitted in N1. AJF/tkr O.Received fresh in a container labeled with Abbey Tan , [facility] number, and "right para colic gutter biopsy" is a 1.1 x 0.9 x 0.4 cm fragment of purple-white fibromembranous tissue. The specimen is serially sectioned and entirely submitted in O1. AJF/tkr Microscopic Description A-O.Microscopic examination performed and supports the diagnosis. KED/rls Intraoperative Consult FS A.Right tube and ovary: High grade invasive adenocarcinoma. FSA1/2 CD/DA/ JOSIE C.Omentum: Fat necrosis. No tumor identified on limited sampling. FSC1/2 CD/DA/JOSIE E.Omentum #2: Fat necrosis. No tumor identified on limited sampling. FSE1 /2 CD/DA/JOSIE Romain Woodruff MD, R4 Hilary Allen MD, Fellow Hailey Dao MD SYNOPTIC OVARY or FALLOPIAN TUBE: Oophorectomy, Salpingectomy, Salpingo- Oophorectomy, Subtotal Oophorectomy or Removal of Tumor in Fragments, Hysterectomy With Salpingo-Oophorectomy or Salpingectomy(OvaryFT - A, B, C, D, E, F, G, H, I, J, K, L, M, N, O) SPECIMEN Procedure:Right salpingo-oophorectomy Procedure:Left salpingo-oophorectomy Procedure:Omentectomy Procedure:Peritoneal biopsies Procedure:Peritoneal washing Lymph Node Sampling:Performed Lymph Nodes Sampled:Pelvic lymph nodes Lymph Nodes Sampled:Para-aortic lymph nodes Specimen Integrity:Right ovary Specimen Integrity of Right Ovary:Capsule intact Specimen Integrity:Left ovary Specimen Integrity of Left Ovary:Capsule intact Specimen Integrity:Right fallopian tube Specimen Integrity of Right Fallopian Tube:Other (specify): unable to identify grossly Specimen Integrity:Left fallopian tube Specimen Integrity of Left Fallopian Tube:Intact TUMOR Primary Tumor Site(s):Right ovary Tumor Size:Greatest dimension (cm): 8.0 cm Histologic Type:Serous high-grade carcinoma Histologic Grade:Not applicable Ovarian Surface Involvement:Absent Noninvasive Implant(s):Not present Specimen(s):Right ovary Right Ovary - Extent:Involved Specimen(s):Left ovary Left Ovary - Extent:Not involved Specimen(s):Right fallopian tube Right Fallopian Tube - Extent:Involved Specimen(s):Left fallopian tube Left Fallopian Tube - Extent:Not involved Specimen(s):Omentum Omentum - Extent:Not involved Specimen(s):Peritoneum Peritoneum - Extent:Not involved Peritoneal Ascitic Fluid:Negative for malignancy (normal / benign) Pleural Fluid:Not performed / unknown LYMPH NODES Pelvic Lymph Nodes: Number of Pelvic Lymph Nodes Examined:Specify number: 10 Number of Pelvic Lymph Nodes Involved:None identified Para-aortic Lymph Nodes: Number of Para-aortic Lymph Nodes Examined:Specify number: 3 Number of Para-aortic Lymph Nodes Involved:None identified Other Nodes: Specify Site (if applicable, repeat as needed): omentum Number of Other Lymph Nodes Examined:Specify number: 1 Number of Other Lymph Nodes Involved:None identified STAGE (pTNM, AJCC 7th ed.) TNM Descriptors:Not applicable Primary Tumor (pT):Ovary Ovarian Primary Tumor (pT):pT2a: Extension and / or implants on uterus and / or tube(s). No malignant cells in ascites or peritoneal washings Regional Lymph Nodes (pN):pN0: No regional lymph node metastasis Distant Metastasis (pM):Not applicable - pM cannot be determined from the submitted specimen(s) FIGO STAGE (FIGO 2014) FIGO Stage:IA: Tumor limited to 1 ovary (capsule intact) or fallopian tube; no tumor on ovarian or fallopian tube surface; no malignant cells in the ascites or peritoneal washings ADDITIONAL FINDINGS Additional Pathologic Findings:None identified Optimal tissue block for molecular The optimal tissue block for molecular studies on tumor is: A6 studies The optimal tissue block for molecular studies on non-tumor is: A4 Specimen Surgical Pathology - Ovary; Surgical Pathology - Omentum; Surgical Pathology - Peritoneum; Surgical Pathology - Lymph Node CYTOLOGY NON-TITLE ABSTRACTOR EXAM (09/17/2016 8:23 AM) Component Value Range Case Report Non-Paper Reeler Cytopathology Case: [id number] Authorizing Provider:Juan Francisco De Oliveira MDCollected: 09/17/2016 08:23 AM Ordering Location: Main OR Received:09/17/2016 09:04 AM Pathologist: Praveena Snow MD Specimens: A) - Peritoneal washing, peritoneal washings with heprin 1, 000 units B) - Subdiaphragmatic smear, right diaphagmatic smear C) - Subdiaphragmatic smear, left diaphagmatic smear Interpretation A Peritoneal wash:No tumor cells identified. B Right diaphragmatic smear:No tumor cells identified. C Left diaphragmatic smear:No tumor cells identified. I have personally reviewed this case and edited the report as necessary. Specimen Description A Peritoneal Wash 300 mL red fluid B Right Diaphragmatic Smear 1 unstained slide C Left Diaphragmatic Smear 1 unstained slide Specimen Cytology - Peritoneal washing; Cytology - Subdiaphragmatic smear TYPE AND SCREEN (BLOOD TYPE(ABORH) AND RBC ANTIBODY SCREEN) (09/17/2016 7:07 AM ) Component Value Range ABORH A Negative Specimen Expiration Date 2016-09-20 Antibody Screen Negative Specimen Blood VASC CAROTID DUPLEX SCAN (BILATERAL) (08/26/2016 4:10 PM) Component Value Range [facility] VASC RIGHT CCA PROX PSV 101 cm/sec [facility] VASC RIGHT CCA PROX PEDV 10 cm/sec [facility] VASC RIGHT CCA DIST PSV 79 cm/sec [facility] VASC RIGHT CCA DIST PEDV 14 cm/sec [facility] VASC RIGHT ICA PROX PSV 146 cm/sec [facility] VASC RIGHT ICA PROX PEDV 18 cm/sec [facility] VASC RIGHT ICA DIST PSV 137 cm/sec [facility] VASC RIGHT ICA DIST PEDV 26 cm/sec [facility] VASC RIGHT ECA PSV 165 cm/sec [facility] VASC RIGHT ECA PEDV 6 cm/sec [facility] VASC RIGHT VERTEBRAL PSV 68 cm/sec [facility] VASC RIGHT VERTEBRAL PEDV 19 cm/sec [facility] VASC RIGHT ICA/CCA 1.85 [facility] VASC LEFT CCA PROX PSV 93 cm/sec [facility] VASC LEFT CCA PROX PEDV 6 cm/sec [facility] VASC LEFT CCA DIST PSV 83 cm/sec [facility] VASC LEFT CCA DIST PEDV 9 cm/sec [facility] VASC LEFT ICA PROX PSV 156 cm/sec [facility] VASC LEFT ICA PROX PEDV 31 cm/sec [facility] VASC LEFT ICA DIST PSV 97 cm/sec [facility] VASC LEFT ICA DIST PEDV 18 cm/sec [facility] VASC LEFT ECA PSV 199 cm/sec [facility] LEFT ECA PEDV 18 cm/sec [facility] LEFT VERTEBRAL PSV 42 cm/sec [facility] LEFT VERTEBRAL PEDV 8 cm/sec [facility] V[facility] LEFT ICA/CCA 1.88 THYROXINE - FREE (08/26/2016 11:37 AM) Component Value Range Free T4 (Thyroxine) 0.94 0.80-1.80 ng/dL Specimen Blood THYROID STIMULATING HORMONE (TSH), WITH REFLEX FREE T-4 (08/26/2016 11:37 AM) Component Value Range TSH, Reflex 4.42(H) 0.27-4.20 IU/mL Specimen Blood COMPREHENSIVE METABOLIC PANEL (CMP) (08/26/2016 11:37 AM) Component Value Range Sodium 136 135-145 mEq/L Potassium 5.5(H) 3.5-5.0 mEq/L Chloride 100 95-107 mEq/L CO2 27 22-29 mEq/L Anion Gap 9 8-18 mEq/L BUN 44(H) 10-20 mg/dL Creatinine 1.2(H)Comment: 0.5-1.0 mg/dL Creatinine switched to enzymatic method on 12/08/2010.GFR equation switched to IDMS-traceable MDRD equation on 12/08/2010. Calculated GFR values are not valid in clinical settings where serum creatinine is changing. Glucose 219(H)Comment: 65-99 mg/dL The Expert Committee on the Diagnosis and Classification of Diabetes has defined impaired fasting glucose as greater than or equal to 100 mg/dL but less than 126 mg/dL.(Diabetes Care 28 (Suppl 1)S41,2005) Calcium 8.8 8.5-10.5 mg/dL Total Protein 6.9 6.0-8.0 g/dL Albumin 4.1 3.4-4.8 g/dL AST 30Comment: 0-32 U/L Adult reference ranges updated on 06/26/13 at 830am ALP 143(H) 35-104 U/L Bilirubin Total 0.3 <=1.2 mg/dL ALT 51(H)Comment: 0-33 U/L The upper limit of normal for alanine aminotransferase (ALT) reference ranges for adults is controversial with some authorities recommending limit as low as 30 U/L for males and 19 U/L for females. Th ere is increased incidence of subclinical liver disease (e.g., early steatohepatitis) in patients with ALT values in the range of 31-41 U/L for males and 20-33 U/L for females. ALT values should alway s be interpreted in conjunction with clinical history, physical examination findings, and, if applicable, data from other diagnostic tests. Calculated GFR 45(L) >60 mL/min/1.73 m2 Specimen Blood CHEST- PA& LATERAL (08/26/2016 11:16 AM) Impressions Impression: No acute cardiopulmonary or pleural process. No evidence of metastatic disease. Narrative Procedure: CHEST- PA & LATERAL Clinical Indication: 66-year-old female. Preop chest x-ray. Technique: PA and lateral chest radiograph Comparison: External CT abdomen and pelvis W contrast (07/23/2016) Findings: The cardiomediastinal silhouette and pulmonary vasculature are normal. The lungs are clear. No pulmonary lesions. Mild blunting of the left costophrenic angle due to pleural thickening. No large layering effusion seen on lateral view. Cholecystectomy clips noted. Postsurgical changes of sternotomy wires and surgical clips. The remainder of the study is unremarkable for the patient's age. 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 Preop chest x-ray. Technique: PA and lateral chest radiograph Comparison: External CT abdomen and pelvis W contrast (07/23/2016) Findings: The cardiomediastinal silhouette and pulmonary vasculature are normal. The lungs are clear. No pulmonary lesions. Mild blunting of the left costophrenic angle due to pleural thickening. No large layering effusion seen on lateral view. Cholecystectomy clips noted. Postsurgical changes of sternotomy wires and surgical clips. The remainder of the study is unremarkable for the patient's age. IMPRESSION Impression: No acute cardiopulmonary or pleural process. No evidence of metastatic disease. ECG - EKG 12 LEAD (08/26/2016 11:00 AM) Component Value Range ECG SEVERITY - ABNORMAL ECG - VENT. RATE 52 bpm RR 1154 ms P-R INTERVAL 204 ms QRSD INTERVAL 94 ms QT INTERVAL 500 ms QTC INTERVAL 465 ms P AXIS 49 degrees QRS AXIS 32 degrees T WAVE AXIS 112 degrees REPORT SINUS BRADYCARDIA FIRST DEGREE AV BLOCK PROBABLE LVH WITH SECONDARY REPOL ABNRM No prior tracing available for comparison Interpreting Physician: Sincere Woods MD ECHO ADULT - ECHOCARDIOGRAM, TRANSTHORACIC (08/26/2016 7:48 AM) Component Value Range Interpretation Summary TRANSTHORACIC ECHOCARDIOGRAM Mild left ventricular hypertrophy. LV Ejection Fraction=60% (based on Biplane Method of Discs). Normal left ventricular wall motion RV/RA peak instantaneous systolic gradient=33mmHg (spectral Doppler). No hemodynamically significant valvular aortic stenosis by doppler A normal IVC diameter which collapses greater than 50% would support an normal RA pressure of 3 mmHg (range 0-5mmHg). Patient Height (cm) 167.6 cm Patient Weight (kg) 66.2 kg Systolic Pressure (mmHg) 126 mmHg Diastolic Pressure (mmHg) 60 mmHg BSA (meters^2) 1.7 m^2 Left Ventricle (LV) Normal left ventricular size. Mild left ventricular hypertrophy. Normal left ventricular systolic function. The transmitral spectral Doppleris normal for age. LV Ejection Fraction=60% (based on Biplane Method of Discs). E/E' ratio is 24, which predicts an elevated LV filling pressure. Normal left ventricular wall motion Right Ventricle (RV) Normal right ventricular size. Normal right ventricular systolic function. Tricuspid annular plane systolic excursion is normal, measuring 18 mm; which suggests normal RV function.(Normal excursion is 17 mm or greater) Left and Right Atria (LA, RA) Moderately enlarged left atrial size. Moderately enlarged right atrial chamber size Mitral Valve (MV) Normal mitral valve leaflet morphology Trace mitral regurgitation Tricuspid Valve (TV) Normal tricuspid valve morphology Trace Tricuspid regurgitation RV/RA peak instantaneous systolic gradient=33mmHg (spectral Doppler). Aortic Valve (AoV) Trileaflet Aortic valve. No aortic regurgitation by color Doppler. No hemodynamically significant valvular aortic stenosis by doppler Aortic valve sclerosis. Pulmonic Valve (PV) The pulmonic valve leaflets are poorly seen. No pulmonic valve stenosis by doppler Trace pulmonic valve insufficiency by doppler. Aorta and Pulmonary Artery (Ao, PA) The aortic root is normal size. The pulmonary artery is normal size. Pericardium/Pleura There is no pericardial effusion. No pleural effusion Procedures IRL Complete 2D with Doppler, Color Flow and image documentation ( [id number]) I personally viewed the echocardiogram and approve the above interpretation Inf. Vena Cava (IVC) / Pulm. Veins A normal IVC diameter which collapses greater than 50% would support an normal RA pressure of 3 mmHg (range 0-5mmHg). Primary ICD-9 Code Coronary atherosclerosis of [place] coronary artery (414.01) IVSd 1.0 cm LVIDd 5.5 cm LVIDs 4.2 cm LVPWd 0.80 cm IVS/LVPW 1.3 LA dimension 4.3 cm LVOT diam 2.1 cm LVOT area 3.5 cm^2 LVAd ap4 30.8 cm^2 EF(MOD-sp4) 59.8 % MV E max katherin 127.0 cm/sec MV dec time 0.23 sec AI dec slope 282.0 cm/sec^2 AI P1/2t 450.8 msec TR Max katherin 287.0 cm/sec Low Range of LVEF 60 High Range of LVEF 60 Reason For Study Assess Cardiac Function Development Manager Mary Burciaga Interpreting Physician Gissell Fregoso electronically signed on 2016-08-26 13:36:[id number]-STORE& INTERPRET (08/09/2016 4:08 PM) Impressions Impression: 1. Heterogeneous right adnexal lesion with smooth well-circumscribed borders. No calcifications or external excrescences. No abdominal or pelvic ascites. Several small retroperitoneal lymph nodes. Normal appearance of the greater omentum. 2. Normal appearance of small left ovary. 3. Normal appearance of the vaginal cuff. 4. No renal hydronephrosis. Several small hypodense intraparenchymal renal lesions most likely representing benign cysts. 5. Focal fat necrosis involving the right mid abdominal mesentery. Probable previous trauma. 6. The right adnexal heterogeneous lesion is a new finding compared to the prior study of September 25, 2003. Small left ovary similar to the prior study of September 25, 2003. Narrative Outside film interpretation requested. Patient name: Abbey Tan. Exam was performed at 1003 hours on 07/23/2016 at [facility]. 203 images are provided and interpreted on the in-house PACS. Procedure: CT exam of the abdomen and pelvis with IV contrast. Technique: Exam is performed with intravenous contrast and consists of abdomen and pelvis Clinical Indication: Syncopal episodes. Chest pain. Adnexal mass. Comparison: 09/25/2003 Findings: Lower chest: Calcified granuloma at the right lung base Liver: Normal Bile ducts: Not dilated. Gallbladder: Surgically absent Pancreas: Normal Spleen: Splenic calcifications. Calcification of the splenic artery. Adrenal glands: Normal Kidneys: Several small hypodense lesions measuring between 5 and 10 mm involving the parenchyma of the right and left kidneys. Normal excretion of contrast material from the kidneys on the delayed images. Ureters: Normal opacification of the right and left ureters on the delayed images. No hydronephrosis. Bladder: Partial opacification of the urinary bladder on the delayed images. No gross abnormalities. Aorta: Atherosclerotic vascular calcification of the abdominal aorta. Vascular calcifications at the takeoff of the SMA. Retroperitoneum: Left periaortic lymph node measuring 1.1 cm (3-37). Aortocaval lymph node measuring 0.7 cm (3-45). Peritoneum: No ascites. Mesentery: Normal Stomach: Not distended. Small bowel: Not distended. Colon: Focal fat necrosis in the right mid quadrant possibly from previous trauma or surgery. Partial opacification of the colon. No gross abnormalities. Appendix: The appendix is not visualized and may be surgically absent. Extraperitoneal pelvis: No lymphadenopathy. Uterus: Normal appearance of the vaginal cuff Ovaries: Right adnexal heterogeneous lesion causing mild displacement of the bowel loops. Right adnexal lesion measures between 20 and 75 Hounsfield units and 8.0 cm AP diameter x 5.6 cm transverse diameter 5.1 cm craniocaudal diameter. Probable left ovary measuring 2.2 cm (3-60). Abdominal wall: Normal Bones: No acute fracture or destructive bone lesion. 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 Patient name: Abbey Tan. Exam was performed at 1003 hours on 07/23/2016 at [facility]. 203 images are provided and interpreted on the in-house PACS. Procedure: CT exam of the abdomen and pelvis with IV contrast. Technique: Exam is performed with intravenous contrast and consists of abdomen and pelvis Clinical Indication: Syncopal episodes. Chest pain. Adnexal mass. Comparison: 09/25/2003 Findings: Lower chest: Calcified granuloma at the right lung base Liver: Normal Bile ducts: Not dilated. Gallbladder: Surgically absent Pancreas: Normal Spleen: Splenic calcifications. Calcification of the splenic artery. Adrenal glands: Normal Kidneys: Several small hypodense lesions measuring between 5 and 10 mm involving the parenchyma of the right and left kidneys. Normal excretion of contrast material from the kidneys on the delayed images. Ureters: Normal opacification of the right and left ureters on the delayed images. No hydronephrosis. Bladder: Partial opacification of the urinary bladder on the delayed images. No gross abnormalities. Aorta: Atherosclerotic vascular calcification of the abdominal aorta. Vascular calcifications at the takeoff of the SMA. Retroperitoneum: Left periaortic lymph node measuring 1.1 cm (3-37). Aortocaval lymph node measuring 0.7 cm (3-45). Peritoneum: No ascites. Mesentery: Normal Stomach: Not distended. Small bowel: Not distended. Colon: Focal fat necrosis in the right mid quadrant possibly from previous trauma or surgery. Partial opacification of the colon. No gross abnormalities. Appendix: The appendix is not visualized and may be surgically absent. Extraperitoneal pelvis: No lymphadenopathy. Uterus: Normal appearance of the vaginal cuff Ovaries: Right adnexal heterogeneous lesion causing mild displacement of the bowel loops. Right adnexal lesion measures between 20 and 75 Hounsfield units and 8.0 cm AP diameter x 5.6 cm transverse diameter 5.1 cm craniocaudal diameter. Probable left ovary measuring 2.2 cm (3-60). Abdominal wall: Normal Bones: No acute fracture or destructive bone lesion. IMPRESSION Impression: 1. Heterogeneous right adnexal lesion with smooth well-circumscribed borders. No calcifications or external excrescences. No abdominal or pelvic ascites. Several small retroperitoneal lymph nodes. Normal appearance of the greater omentum. 2. Normal appearance of small left ovary. 3. Normal appearance of the vaginal cuff. 4. No renal hydronephrosis. Several small hypodense intraparenchymal renal lesions most likely representing benign cysts. 5. Focal fat necrosis involving the right mid abdominal mesentery. Probable previous trauma. 6. The right adnexal heterogeneous lesion is a new finding compared to the prior study of September 25, 2003. Small left ovary similar to the prior study of September 25, 2003.
[2016-10-24 11:27] LABS: Hematocrit 31.1 % (37.0-47.0); Hemoglobin 10.5 gm/dL (12.5-16.0); Mean Cell Volume 91.2 fl (78-100); Mean Corpuscular Hemoglobin 30.8 pg (27-31); Mean Corpuscular Hgb Conc 33.8 g/dl (32-36); Mean Platelet Volume 10.3 fl (6.0-9.5); Neutrophil # 5.6 K/mm3 (1.3-6.0); Neutrophil % 86.1 % (42-75.0); Platelet Count 172 K/mm3 (150-450); Red Blood Count 3.41 M/mm3 (4.2-5.4); Red Cell Distribution Width 13.3 % (11.5-14.0); White Blood Count 6.5 K/mm3 (4.0-10.5)
[2016-10-24 11:45] LABS: ALT 20 U/L (19-67); AST 16 U/L (0-48); Albumin * 3.2 gm/dl (3.4-5.0); Alkaline Phosphatase * 102 U/L (50-170); BNP * 1066 pg/mL (5-325); BUN/Creatinine Ratio 31.3 (9.0-21.6); Bilirubin, Total 0.5 mg/dL (0.0-1.1); Blood Urea Nitrogen 40 mg/dL (3-23); Ca. Corrected For Albumin 9.2 mg/dL (8.4-10.2); Calcium * 8.9 mg/dL (7.9-10.9); Carbon Dioxide 21.1 mmol/L (24-32.6); Chloride 95 mmol/L (97-106); Glucose * 222 mg/dL (70-110); Potassium 4.1 mmol/L (3.4-4.6); Sodium 130 mmol/L (132-142); Total Protein 7.4 gm/dL (6.2-8.2); Troponin I Less than 0.017 ng/ml (0.00-0.10)
[2016-10-24 13:06] LABS: Urine Bilirubin Negative (NEGATIVE); Urine Blood Negative /ul (NEGATIVE); Urine Ketone Negative (NEGATIVE); Urine Nitrite Negative (NEGATIVE); Urine Protein 30 mg/dL (NEGATIVE); Urine Specific Gravity 1.025 SP.GR. (1.005-1.010); Urine Urobilinogen Normal (NORMAL); Urine pH 5.5 pH (5.0-7.0)
[2016-10-24 13:16] LABS: Urine Amorphous Sediment Few - 1+ (NONE-FEW); Urine Appearance Clear; Urine Bacteria None Seen; Urine Color Yellow; Urine RBC None Seen /hpf (0-5); Urine WBC None Seen /hpf (0-5)
--- NOTE | 2016-10-24 14:39 | ERNOTE ---
Medical Problem HPI - Narrative Date of Service: 10/24/16 - General Chief Complaint: General Assessment Time Seen by Provider: 10/24/16 10:47 Source: patient Exam Limitations: no limitations - Immun/Allergies/Home Medications Immunizations: IMMUNIZATION HX Immunizations Up to Date Yes History of Influenza Vaccine Yes Hx Pneumococcal Vaccination Yes Allergies/Adverse Reactions: Allergies No Known Allergies Allergy (Verified 10/24/16 10:51) Home Medications: HOME MEDICATIONS Aspirin [Aspirin Chewable] 81 mg PO DAILY 11/10/12 [Last Taken 11/07/13 07:00] Clopidogrel Bisulfate [Plavix] 75 mg PO DAILY 11/10/12 [Last Taken 11/07/13 07: 00] Escitalopram Oxalate [Lexapro] 20 mg PO DAILY 11/10/12 [Last Taken 11/07/13 07: 00] Tizanidine HCl 2 mg PO BID PRN 11/10/12 [Last Taken 11/07/13 18:00] Nitroglycerin 0.4 mg SL Q5MIN PRN 05/09/13 [Last Taken Unknown] Isosorbide Mononitrate [Imdur] 60 mg PO DAILY 11/08/13 [Last Taken 11/07/13 07: 00] metFORMIN HCL [Glucophage Xr] 1,000 mg PO BID #0 02/25/15 [Last Taken Unknown] Gabapentin [Neurontin] 600 mg PO BID 10/31/15 [Last Taken Unknown] Acetaminophen [Tylenol] 1,000 mg PO Q6H PRN 02/05/16 [Last Taken Unknown] Cholecalciferol (Vitamin D3) [Vitamin D3] 2,000 unit PO DAILY 02/05/16 [Last Taken Unknown] Cyanocobalamin (Vitamin B-12) [Vitamin B-12] 500 mcg PO DAILY 02/05/16 [Last Taken Unknown] Nystatin [Mycostatin Cream] 30 gm TP TID PRN 02/05/16 [Last Taken Unknown] Atorvastatin Calcium [Lipitor] 80 mg PO DAILY #.1 tablet 02/06/16 [Last Taken Unknown] Insulin Glargine,Hum.rec.anlog [Lantus] 30 unit SQ BID #2 vial 02/06/16 [Last Taken Unknown] Levothyroxine Sodium [Levoxyl] 250 mcg PO DAILY@0700 #60 tablet 02/06/16 [Last Taken Unknown] Lisinopril [Zestril] 20 mg PO BID #60 tablet 02/06/16 [Last Taken Unknown] Amox Tr/Potassium Clavulanate [Augmentin 875-125 Tablet] 875 mg PO Q12H #20 tab 04/16/16 [Last Taken Unknown] Hydromorphone HCl [Dilaudid] 2 mg PO Q4H 10/24/16 [Last Taken Unknown] Lidocaine [Lidoderm 5%] 1 patch TP DAILY PRN 10/24/16 [Last Taken Unknown] Ondansetron HCl [Zofran] 8 mg PO Q4H 10/24/16 [Last Taken Unknown] Prochlorperazine Maleate [Compazine] 10 mg PO Q6H 10/24/16 [Last Taken Unknown] - History of Present History Narrative: 66-year-old female arriving to the emergency room. States she has been unable to keep fluids down has had constant diarrhea. She has recently had chemotherapy for ovarian cancer. And has been feeling very weak since her chemotherapy. Date (Duration): 10/24/16 Timing: getting worse Severity: moderate Modifying Factors - (Improves): Present: medication Modifying Factors - (Worsens): Present: eating Review of Systems - Review of Systems Constitutional: Present: See HPI, recent illness, fatigue, malaise EYE: Present: no symptoms reported ENT: Present: no symptoms reported Respiratory: Present: no symptoms reported Cardiology: Present: no symptoms reported Gastrointestinal/Abdominal: Present: See HPI, nausea, vomiting, diarrhea, abdominal pain, eating less, drinking less Genitourinary: Present: no symptoms reported Musculoskeletal: Present: no symptoms reported Skin: Present: no symptoms reported Neurological: Present: no symptoms reported Endocrine: Present: no symptoms reported Hematologic/Lymphatic: Present: no symptoms reported Psych: Present: no symptoms reported - Patient's Past Medical History Patient History - Medical: Anemia, Diabetes Type 2, Other Patient History - Cardiac/Respiratory: Coronary Heart Disease, Hypertension Patient History - Cancer: No Hx of Cancer Patient History - Surgical Procedures: Cholecystectomy, Colon Resection, Coronary Bypass Surgery Patient History - Other: None - Family History Father Family History - Medical: Family History - Cardiac/Respiratory: No pertinent hx Mother Family History - Medical: Family History - Cardiac/Respiratory: Coronary Heart Disease, Hypertension - Social History Living Situations: home Abuse History: No History of abuse Psych History: Hx of Anxiety, Hx of Depression Alcohol Use: none Drug Use: none - Immunizations Immunizations Up to Date: Yes Hx Pneumococcal Vaccination: Yes History of Influenza Vaccine: Yes Physical Exam - Physical Exam General Appearance: Present: no apparent distress, lethargic Eye Exam: Normal inspection: bilateral Ears, Nose, Throat: Present: normal ENT inspection Neck: Present: normal inspection Respiratory: Present: no respiratory distress, lungs clear. Absent: respiratory distress Gastrointestinal/Abdominal: Present: normal bowel sounds, tenderness Back Exam: Present: normal inspection Extremity Exam: Present: normal inspection Neurological Exam: Present: alert, normal mood/affect Skin Exam: Present: normal color, warm/dry Lymphatic Exam: Present: no adenopathy ED Progress - Results and Orders Patient's Lab Results:: I have reviewed the patient's lab results. - Vital Signs Patient's Vital Signs:: I have reviewed the patient's vital signs. Vital Signs: Vital Signs 10/24/16 10/24/16 10/24/16 10:45 11:00 11:58 Temperature 37.2 C Pulse Rate 60 56 L 55 L Respiratory 12 16 14 Rate Blood Pressure 121/51 90/38 118/38 O2 Sat by Pulse 98 98 97 Oximetry 10/24/16 10/24/16 10/24/16 12:13 12:27 12:43 Temperature Pulse Rate 65 66 67 Respiratory 20 21 H 21 H Rate Blood Pressure 128/40 126/42 134/47 O2 Sat by Pulse 100 100 100 Oximetry - EKG EKG: NSR - X-Ray X-Ray #1 X-Ray: chest Interpretation: Interp. by me - er attending, Reviewed by me X-ray Comments: History x-ray has no acute findings. X-ray also compared to previous chest x- ray. - Progress/Reassessment Chief Complaint: General Assessment Progress:: Unchanged Progress Note-Subjective: 10/24/16 14:37 Patient continues to be very sleepy still continues to felt poorly. Speaking with admitting hospitalist and agreed to admit patient for dehydration Plan - Plan Plan: Patient is to be admitted to the hospital for observation related to dehydration. Departure - Departure Clinical Impression: Dehydration, Hyponatremia Disposition: [facility] Condition: Stable
--- OUTSIDE RECORDS SUMMARY | 2016-10-24 14:46 | XMS REPORT | Continuity of Care Document ---
:1950 Author Organization [employer] [place] [address] Care Team Providers Name Role Phone Unavailable Primary Care Provider Unavailable Source Comments This disclosure is being made pursuant to the [employer] program and maynot contain all information available regarding this patient.[employer] Active Allergies and Adverse Reactions Not on [...]
--- OUTSIDE RECORDS SUMMARY | 2016-10-24 14:47 | XMS REPORT | Continuity of Care Document ---
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 Successful intervention on Cx-M3 - 2.012 [place] PTCA, 2.25/07 Xience Xpedition to final 0% at site of stent. Diffuse disease in the M3 distal to the stent. Successful intervention on RPDA through the SVG - 2.0/12 [place] PTCA, . Xience Xpedition to final 0%. [...] negative. - Will request more records from [facility] including: discharge summaries, H&P, consultation reports, images from prior CTs/ MRIs. - Labs today: CBC, BMP, LFT, ESR/CRP. - Follow up in ID clinic in 4 weeks after review of the information above. - If episodes recur prior to appointment, pt is encouraged to come to [facility] ED if possible for further evaluation. 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 Onc encounter for Advanced (Primary Dx) Practice Provider 10/19/2016 Orders/Notes Surveillance Analyst Tia Diaz, Chief Comp: Other 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 10/19/2016 Pharmacy Visit 10/18/2016 Office Visit [facility] Juan Francisco De Oliveira, Chief Comp: Patient MD Reported Reason For Clinic, Construction Equipment Overhauler Onc Visit Advanced Practice Provider 10/14/2016 Telephone [facility] Deborah Cordova, Chief Comp: RN Follow-up 10/12/2016 Telephone Cancer Center Jeni Nicholson Chief Comp: Cindy Baez RN 10/12/2016 Orders/Notes Cancer Center Jeni Nichoslon RN 10/12/2016 Telephone Cancer Center Reny Palmer Chief Comp: Discuss A, CGC Test Results 10/06/2016 Office Visit [facility] Srinivasa, Chief Comp: Patient MD Mario Alberto Reported Reason For Visit 10/06/2016 Orders/Notes Obstetrics Uri, [place] K, MAIL WEIGHER 10/04/2016 Office Visit Cancer Center Default, Other [...] For Lab Services, Visit Irl 09/29/2016 Telephone [facility], Chief Comp: RN Follow-up 09/29/2016 Telephone [facility], Chief Comp: Return RN Call 09/29/[address] [facility] Cynthia Cevallos, Dx: Ovarian cancer, RN unspecified laterality (Primary Dx) 09/21/2016 Nurse Triage General Care Candy Baumann Chief Comp: IP Inpatient - Adult E, knitted cloth examiner Follow-up Call 09/21/2016 Orders/Notes [facility] [place] Juan Francisco De Oliveira MD 09/21/2016 Orders/Notes [facility] [place] Juan Francisco De Oliveira MD 09/17/2016 [facility] Juan Francisco De Oliveira, Dx: Adnexal [...] Medicine - Cynthia An, Chief Comp: Primary MAIL WEIGHER Appointment Request 08/26/2016 [facility] Reva, Dx: Syncopal Encounter MD Karyna episodes 08/26/2016 [facility] Jose, Chief Comp: Patient Encounter MD Berenice Reported Reason For Visit 08/26/2016 Office Visit [facility] Juan Francisco De Oliveira, Dx: Ovarian mass, MD right (Primary Dx) 08/26/2016 Office Visit Internal Medicine - Default, Other Dx: Anemia, Specialty Billg - Defo unspecified type Bethany Rueda, (Primary Dx) ([id number]), Msc Surg Co-Managemnt Cl 08/26/2016 Office Visit Pathology Juan Francisco De Olvieira, Dx: Syncopal MD episodes Lab Services, Pf 08/26/2016 [facility] Radiology Avelino Obrien, Dx: Syncopal Encounter MD episodes 08/26/2016 [facility] Anesthesiology Juan Francisco De Oliveira, Chief Comp: Patient Encounter MD Reported Reason For Visit 08/26/2016 Office Visit Cardiac Gissell Fregoso MD Dx: Ischemic Rehabilitation cardiomyopathy (Primary Dx) 08/26/2016 Office Visit Cardiac Gissell Fregoso MD Dx: Murmur Rehabilitation 08/25/2016 Anesthesia Event General Surgery Corbin Sánchez 08/23/2016 Telephone Cardiac Gissell Fregoso MD Chief Comp: Other Rehabilitation 08/09/2016 [facility] Radiology Juan Francisco Fuchs, Dx: Syncopal Encounter [...] 1.651 m (5' 5") 10/04/2016 12:38 PM 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 OOPHORECTOMY, 09/17/2016 7:30 AM Adnexal mass ABDOMINAL, Abd RACK PRODUCTION WORKER Hernia repair Case Notes hernia repair + Unilateral salpingooophorectomy Results from Last 3 Months DIFFERENTIAL (10/19/2016 9:20 AM)Only the most recent of3 resultswithin the time period is included. Component Value Range % Neutrophils-Auto Diff 63.9 % Neutrophils-Auto Diff 4700 2322-7601 /MM3 % Lymphocytes-Auto Diff 22.9 % Lymphocytes-Auto Diff 1927 925-6510 /MM3 % Monocytes-Auto Diff 8.8 % Monocytes-Auto [...] Abnormality Status --------- ------ CBC (COMPLETE BLOOD COUNT)[[id number]] AbnormalFinal result DIFFERENTIAL[[id number]] Final result Please view results for these tests on the individual orders. MISCELLANEOUS TEST, GENETIC (10/04/2016 3:21 PM) Component Value Range Miscellaneous Test, Genetic See ScanComment: Find scanned test results for [facility] [place] [facility] with hereditary breast and ovarian cancer panel by going to the Order Report, then clicking the Results Document hyperlink. For [employer] user the scan result report is not [...] 3+(A) Negative Nitrite, Urine Negative Negative Spec Lulu, Urine 1.020 1.000-1.030 Specimen Urine URINE CULTURE, [...] AT 830AM Normal 211 - 946 pg/mL [id number] - 210 pg/mL Deficient<150pg/mL Specimen Blood RETICULOCYTES [...] RBC 0 /100 WBC Specimen Whole Blood RADIOLOGY ASST OR CASE (09/19/2016 9:07 PM) Juan Francisco Blank MD 09/19/20169:07 PM OR CASE: OOPHORECTOMY, ABDOMINAL Post-Op Procedure Note General Information: Date: 09/17/16 Time: 729 Location: MAIN OR OR Room: [facility] OR Service: Gynecology Log ID: [id number] Operation/Procedure: Exploratory Laparotomy Lysis of Adhesions Bilateral [...] MD Staff Information: Scrub Nurse: Crissy Cao overhead foreman Nurse: Magalis Gomes RN; Olivia Cao RN Retail Grocer- Scrub: Elinor Rodarte; Ne Mendoza Anesthesia: General [...] heprin 1,000 units Cytology Cytology Specimen CYTOLOGY NON-RADIOLOGY ASST EXAM Juan Francisco De Oliveira MD 09/17/2016 [...] EXAM Juan Francisco De Oliveira MD 09/17/2016 1020 11 : [...] right diaphagmatic smear Cytology Cytology Specimen CYTOLOGY NON-RADIOLOGY ASST EXAM Juan Francisco De Oliveira MD 09/17/2016 1051 19 : left diaphagmatic smear Cytology Cytology Specimen CYTOLOGY NON-RADIOLOGY ASST EXAM Juan Francisco De Oliveira MD 09/17/2016 [...] Gynecologic Oncology Department of Obstetrics and Gynecology [facility] [phone] [email or web address] (09/17/2016 9:55 PM) Component Value Range Hemoglobin 9.8(L) 11.9-15.5 g/dL Specimen Whole Blood SURGICAL PATHOLOGY EXAM (09/17/2016 8:48 AM) Component Value Range Case Report Surgical Pathology Case: [id number] Authorizing Provider:Juan Francisco De Oliveira MDCollected: 09/17/2016 [...] in a container labeled with Abbey Tan [facility] number and "right tube and ovary" is [...] surface (approximately 10%) is white-recinos and dense. Director Dental Services sections are frozen as A1. Director Dental Services sections are submitted as follows: A1: frozen section remnant A2-A8: parts sales representative sections of mass (recinos-white dense portion in A4 and A5 ) NIKITAF/nica B.Received fresh in a container labeled with Abbey Tan, [facility] number and "left tube and ovary" is [...] to 0.2 cm diameter.It is grossly unremarkable. Director Dental Services sections are submitted as follows: B1: ovary B2: fallopian tube and cross section and fimbriated end NIKITAF/nica C.Received fresh for frozen section in a container labeled with DominickAbbey , [facility] number and "omentum" is a 9.0 x 4.2 x 3.0 cm fragment of dark yellow and firm fibroadipose tissue consiste nt with omentum resection.The specimen is serially sectioned to reveal a dark yellow, homogeneous, firm and mucinous cut surface of necrotic fat.No discrete masses or lesions are identified. Director Dental Services sections are frozen as C1. Director Dental Services sections are submitted as follows: C1: frozen section remnant C2: additional sections TERI/nica D.Received fresh in a container labeled with DominickAbbey , [facility] number and "omentum" is a 30.0 x 22.0 cm wide x up to 2.0 cm thick fragment of pink-yellow, lobulated fibroadipose tissue con sistent with omental resection.Sectioning reveals a single 0.5 x 0.5 x 0.4 cm firm nodule.The remaining cut surface if yellow-recinos, soft and lobulated fibroadipose tissue. Director Dental Services sections are submitted as follows: D1: nodule D2: omentum TERI/nica E.[facility] and "omentum #2" is a 3.3 x 2.3 x 1.8 cm unoriented segment of recinos- yellow, lobular to nodular fibrofatty tissue.Sec tioning reveals recinos-yellow, firm to gritty cut surfaces, grossly consistent with fat necrosis.Director Dental Services sections of nodule are frozen with remnant in E1. Additional parts sales representative sections ofspecimen are submitted in E2. LRL/tkr F.Received fresh in a container labeled with Abbey Tan [facility] number, and "left pelvic side wall peritoneum" [...] in a container labeled with Abbey Tan, [facility] number, and "left para aorticlymph nodes" is [...] in a container labeled with Abbey Tan, [facility] number, and "left para colic gutter biopsy" is a 2.0 x 1.7 x 0.3 cm fragment of pink-purple fibromembranous tissue.One olivera rface is smooth with the opposite surface exhibiting adherent recinos-yellow fibroadipose tissue. The specimen is serially sectioned and entirely submitted in I1. AJF/tkr J.Received fresh in a container labeled with Abbey Tan, [facility] number, and "right pelvic side wall" is a 1.7 x 1.0 x 0.4 cm fragment of purple- pink fibromembranous tissue.One surface i s smooth with the opposite surface exhibiting adherent yellow-recinos soft fibroadipose tissue. The specimen is serially sectioned and entirely submitted in J1. AJF/tkr K.Received fresh in a container labeled with Abbey Tan, [facility] number, and "right pelvic lymph nodes" is [...] in a container labeled with DominickAbbey , [facility] number, and "right para aortic" is a 3.5 x 1.4 x 0.9 cm fragment of yellow-red fibroadipose tissue.Sectioning reveals a 1.2 x 0.7 x 0.5 cm recinos-purple possible lymph node.The possible lymph node is serially sectioned and entirely submitted in L1. AJF/tkr M.Received fresh in a container labeled with Abbey Tan , [facility] number, and "anterior cul de sac" is a 1.9 x 1.2 x 0.4 cm fragment of purple- pink fragment of fibromembranous tissue.One surface is smooth with the opposite ragged and exhibits minimal cautery. The specimen is serially sectioned and entirely submitted in M1. AJF/tkr N.Received fresh in a container labeled with Abbey Tan , [facility] number, and "posterior cul de sac" is a 2.0 x 0.4 x 0.2 cm fragment of purple- pink fibromembranous tissue. The specimen is entirely submitted in N1. 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 Vena Cava (IVC) / Pulm. Veins A normal IVC diameter which collapses greater than 50% would support an normal RA pressure of 3 mmHg (range 0-5mmHg). Primary ICD-9 Code Coronary atherosclerosis of [place] coronary artery (414.01) IVSd 1.0 cm LVIDd [...] 60 Reason For Study Assess Cardiac Function Warehouse Insulation Worker Mary Burciaga Interpreting Physician Gissell Fregoso electronically [...] performed at 1003 hours on 07/23/2016 at [facility]. 203 images are provided and interpreted [...] - Tue Aug 10, 2016 8:42 AM RACK PRODUCTION WORKER Outside film interpretation requested. Patient name: Abbey Tan. Exam was performed at 1003 hours on 07/23/2016 at [facility]. 203 images are provided and interpreted [...]
[2016-10-24] MEDS ORDERED: LIDOCAINE 1 PATCH ADH..PATCH TP PRN (16:46)
[2016-10-24] MEDS ORDERED: ACETAMINOPHEN 500 MG TABLET PO PRN (16:46)
[2016-10-24] MEDS ORDERED: NYSTATIN 30 APPL TUBE TP PRN (16:46)
[2016-10-24 16:55] LABS: Iron 86 mcg/dL (35-120); Transferrin Sat. (% Sat.) 42 % (15-55)
[2016-10-24 17:01] LABS: Amylase * 32 U/L (25-115); Lipase 144 U/L (73-393)
[2016-10-24] MEDS ORDERED: ENOXAPARIN SODIUM 40 MG/0.4 ML SYRG SC SCH (18:00)
[2016-10-24] MEDS ORDERED: PANTOPRAZOLE SODIUM 40 MG in NORMAL SALINE 100 ML IV SCH (18:00)
--- NOTE | 2016-10-24 18:37 | HP ---
Chief Complaint - Chief Complaint Date of Service: 10/24/16 Time of Service: 16:45 Chief Complaint: severe weakness and dehydration History of Present Illness: Abbey is a 66 year old female with a history of HTN, HLP, DM, CAD s/p 4v CABG in 2004, [place], who was recently diagnosed with right ovarian cancer and started on carboplatin and Taxol on 10/19/16 and recommended to complete 6 cycles. Since starting chemotherapy, patient states that her oral intake has become very poor and she has become very weak. Patient c/o diarrhea that has waxing and waning cycles since april but states that since start chemotherapy the diarrhea has become significantly worse. Denies any chest pain or dyspnea. ER evaluation revealed bradycardia with a heart rate in the 50s with sbp in the 90s. She was given 1 liter of NS in the ER. BUN in the ER was found to be in the 40s. Patient was admitted for severe weakness and dehydration needing IV fluids. - Patient's Past Medical History Patient History - Medical: Anemia, Diabetes Type 2, Depression, GERD, Hypothyroidism, Migraines, Other Patient History - Cardiac/Respiratory: Coronary Heart Disease, Hypertension, Hyperlipidemia Patient History - Cancer: Colon, Chemotherapy history, Ovarian Patient History - Surgical Procedures: Cholecystectomy, Colon Resection, Coronary Bypass Surgery, Hysterectomy, Tubal Ligation, Orthopedic Patient History - Other: None LMP (females 10-50): Menopausal - Family History Father Family History - Medical: Family History - Cardiac/Respiratory: No pertinent hx Mother Family History - Medical: Family History - Cardiac/Respiratory: Coronary Heart Disease, Hypertension - Social History Living Situations: home Abuse History: No History of abuse Psych History: Hx of Anxiety, Hx of Depression Smoking Status: Never smoker Have you smoked in the past 12 months: No Do you dip or chew tobacco: No Patient requests Smoking Cessation Consult: No Initiate information on Smoking Cessation: No Alcohol Use: none Drug Use: none - Immunizations Immunizations Up to Date: Yes Hx Pneumococcal Vaccination: Yes History of Influenza Vaccine: Yes Review Of Systems (GEN) - Review of Systems Generalized/Overall Review: Present: Weakness, Fatigue EENTM: Present: No Symptoms Reported Respiratory: Present: No Symptoms Reported Cardiac: Present: No Symptoms Reported Abdominal: Present: Nausea, Diarrhea, Bright blood from rectum. Absent: Hematemesis Genitourinary: Present: No Symptoms Reported Musculoskeletal: Present: Joint Pain Neurological: Present: Weakness Skin: Present: No Symptoms Reported Endocrine: Present: No Symptoms Reported Misc: All systems neg except as marked Immunizations: IMMUNIZATION HX Immunizations Up to Date Yes History of Influenza Vaccine Yes Hx Pneumococcal Vaccination Yes Allergies/Adverse Reactions: Allergies Allergy/AdvReac Type Severity Reaction Status Date / Time No Known Allergies Allergy Verified 10/24/16 10:51 Home Medications: HOME MEDICATIONS Aspirin [Aspirin Chewable] 81 mg PO DAILY 11/10/12 [Last Taken 11/07/13 07:00] Clopidogrel Bisulfate [Plavix] 75 mg PO DAILY 11/10/12 [Last Taken 11/07/13 07: 00] Escitalopram Oxalate [Lexapro] 20 mg PO DAILY 11/10/12 [Last Taken 11/07/13 07: 00] Tizanidine HCl 2 mg PO BID PRN 11/10/12 [Last Taken 11/07/13 18:00] Nitroglycerin 0.4 mg SL Q5MIN PRN 05/09/13 [Last Taken Unknown] Isosorbide Mononitrate [Imdur] 60 mg PO DAILY 11/08/13 [Last Taken 11/07/13 07: 00] metFORMIN HCL [Glucophage Xr] 1,000 mg PO BID #0 02/25/15 [Last Taken Unknown] Gabapentin [Neurontin] 600 mg PO BID 10/31/15 [Last Taken Unknown] Acetaminophen [Tylenol] 1,000 mg PO Q6H PRN 02/05/16 [Last Taken Unknown] Cholecalciferol (Vitamin D3) [Vitamin D3] 2,000 unit PO DAILY 02/05/16 [Last Taken Unknown] Cyanocobalamin (Vitamin B-12) [Vitamin B-12] 500 mcg PO DAILY 02/05/16 [Last Taken Unknown] Nystatin [Mycostatin Cream] 30 gm TP TID PRN 02/05/16 [Last Taken Unknown] Atorvastatin Calcium [Lipitor] 80 mg PO DAILY #.1 tablet 02/06/16 [Last Taken Unknown] Insulin Glargine,Hum.rec.anlog [Lantus] 30 unit SQ BID #2 vial 02/06/16 [Last Taken Unknown] Levothyroxine Sodium [Levoxyl] 250 mcg PO DAILY@0700 #60 tablet 02/06/16 [Last Taken Unknown] Lisinopril [Zestril] 20 mg PO BID #60 tablet 02/06/16 [Last Taken Unknown] Amox Tr/Potassium Clavulanate [Augmentin 875-125 Tablet] 875 mg PO Q12H #20 tab 04/16/16 [Last Taken Unknown] Hydromorphone HCl [Dilaudid] 2 mg PO Q4H 10/24/16 [Last Taken Unknown] Lidocaine [Lidoderm 5%] 1 patch TP DAILY PRN 10/24/16 [Last Taken Unknown] Ondansetron HCl [Zofran] 8 mg PO Q4H 10/24/16 [Last Taken Unknown] Prochlorperazine Maleate [Compazine] 10 mg PO Q6H 10/24/16 [Last Taken Unknown] Exam - Exam Vital Signs: Vital Signs - Last Taken Temp 37.2 C 10/24/16 16:22 Pulse 67 10/24/16 16:22 Resp 22 H 10/24/16 16:22 BP 147/49 10/24/16 16:22 Pulse Ox 97 10/24/16 16:22 Constitutional: Present: Alert, Cooperative, No distress, Elderly, Thin and frail, Looks Older than stated age ENT Exam: Present: hearing grossly normal Eye Exam: bilateral eye: normal inspection Neck: Present: full range of motion, supple Back Exam: Present: no vertebral tenderness Breasts: Present: Exam deferred Respiratory: Present: chest non-tender, lungs clear, normal breath sounds, no respiratory distress, no accessory muscle use Cardiovascular/Chest: Present: normal peripheral pulses, regular rate, rhythm, no chest tenderness, no edema Peripheral Pulses: carotid (R): 2+, carotid (L): 2+, dorsalis-pedis (R): 2+, dorsalis-pedis (L): 2+, radial (R): 2+, radial (L): 2+ Abdomen: Present: soft, nontender, nondistended, no rebound tenderness /Rectal: Present: Exam deferred Extremity: Present: non-tender, normal inspection. Absent: lower extremity edema Skin Exam: Present: warm/dry, no cyanosis Neurologic: Present: other - very sleepy but wakes up to questions Diagnostic Studies: Laboratory Results WBC 6.5 K/mm3 (4.0-10.5) 10/24/16 11:20 RBC 3.41 M/mm3 (4.2-5.4) L 10/24/16 11:20 Hgb 10.5 gm/dL (12.5-16.0) L 10/24/16 11:20 Hct 31.1 % (37.0-47.0) L 10/24/16 11:20 MCV 91.2 fl (78-100) 10/24/16 11:20 MCH 30.8 pg (27-31) 10/24/16 11:20 MCHC 33.8 g/dl (32-36) 10/24/16 11:20 RDW 13.3 % (11.5-14.0) 10/24/16 11:20 Plt Count 172 K/mm3 (150-450) 10/24/16 11:20 MPV 10.3 fl (6.0-9.5) H 10/24/16 11:20 Immature Gran % (Auto) 0.80 % (0.001-0.429) H 10/24/16 11:20 Immature Gran # (Auto) 0.05 K/mm3 (0.000-0.0310) H 10/24/16 11:20 Neutrophils % 86.1 % (42-75.0) H 10/24/16 11:20 Lymphocytes % 9.0 % (20-51) L 10/24/16 11:20 Monocytes % 1.2 % (0.0-9) 10/24/16 11:20 Eosinophils % 2.3 % (0.0-3.0) 10/24/16 11:20 Basophils % 0.6 % (0.0-1.0) 10/24/16 11:20 Nucleated RBC % 0.0 k/mm3 (0-1) 10/24/16 11:20 Neutrophils # 5.6 K/mm3 (1.3-6.0) 10/24/16 11:20 Lymphocytes # 0.6 k/mm3 (1.5-3.5) L 10/24/16 11:20 Monocytes # 0.1 k/mm3 (0.0-1.0) 10/24/16 11:20 Eosinophils # 0.2 k/mm3 (0.0-0.7) 10/24/16 11:20 Absolute Basophils 0.0 k/mm3 (0.0-0.1) 10/24/16 11:20 Sodium 130 mmol/L (132-142) L 10/24/16 11:20 Plasma Sodium 132 mmol/L (130-142) 10/24/16 11:20 Potassium 4.1 mmol/L (3.4-4.6) 10/24/16 11:20 Chloride 95 mmol/L (97-106) L 10/24/16 11:20 Carbon Dioxide 21.1 mmol/L (24-32.6) L 10/24/16 11:20 Anion Gap 18.0 mmol/L (6.8-13.8) H 10/24/16 11:20 BUN 40 mg/dL (3-23) H D 10/24/16 11:20 Creatinine 1.28 mg/dL (0.4-1.4) 10/24/16 11:20 Est GFR (Non-Af Amer) 44 mL/min (60-130) L D 10/24/16 11:20 BUN/Creatinine Ratio 31.3 (9.0-21.6) H 10/24/16 11:20 Random Glucose 222 mg/dL (70-110) H 10/24/16 11:20 Lactic Acid, Venous 1.0 mmol/L (0.4-2.0) 10/24/16 17:42 Calcium 8.9 mg/dL (7.9-10.9) 10/24/16 11:20 Calcium Adj for Albumin 9.2 mg/dL (8.4-10.2) 10/24/16 11:20 Iron 86 mcg/dL (35-120) 10/24/16 11:20 TIBC 206 mcg/dL (260-445) L 10/24/16 11:20 Transferrin % Sat 42 % (15-55) 10/24/16 11:20 Total Bilirubin 0.5 mg/dL (0.0-1.1) 10/24/16 11:20 AST 16 U/L (0-48) 10/24/16 11:20 ALT 20 U/L (19-67) 10/24/16 11:20 Alkaline Phosphatase 102 U/L (50-170) 10/24/16 11:20 Ammonia Less than 17.0 mcmol/L (11-35) 10/24/16 16:00 Troponin I Less than 0.017 ng/ml (0.00-0.10) 10/24/16 11:20 B-Natriuretic Peptide 1066 pg/mL (5-325) H 10/24/16 11:20 Total Protein 7.4 gm/dL (6.2-8.2) 10/24/16 11:20 Albumin 3.2 gm/dl (3.4-5.0) L 10/24/16 11:20 Amylase 32 U/L (25-115) 10/24/16 11:20 Lipase 144 U/L (73-393) 10/24/16 11:20 Procalcitonin 0.08 ng/mL (0.05-0.50) 10/24/16 11:20 Urine Color Yellow 10/24/16 13:00 Urine Appearance Clear 10/24/16 13:00 Urine pH 5.5 pH (5.0-7.0) 10/24/16 13:00 Ur Specific [place] 1.025 SP.GR. (1.005-1.010) 10/24/16 13:00 Urine Protein 30 mg/dL (NEGATIVE) H 10/24/16 13:00 Urine Glucose (UA) Negative mg/dL (NEGATIVE) 10/24/16 13:00 Urine Ketones Negative mg/dL (NEGATIVE) 10/24/16 13:00 Urine Blood Negative /ul (NEGATIVE) 10/24/16 13:00 Urine Nitrate Negative (NEGATIVE) 10/24/16 13:00 Urine Bilirubin Negative mg/dl (NEGATIVE) 10/24/16 13:00 Prot Sulfosalicylic Acd 1+ mg/dL (0) 10/24/16 13:00 Urine Urobilinogen Normal EU/dl (NORMAL) 10/24/16 13:00 Ur Leukocyte Esterase Negative /ul (NEGATIVE) 10/24/16 13:00 Urine RBC None seen /hpf (0-5) 10/24/16 13:00 Urine WBC None seen /hpf (0-5) 10/24/16 13:00 Ur Epithelial Cells 0-5 /hpf (0-5) 10/24/16 13:00 Amorphous Sediment Few - 1+ (NONE-FEW) 10/24/16 13:00 Urine Bacteria None seen (NONE) 10/24/16 13:00 Urine Culture Comments Culture to follow 10/24/16 13:00 Assessment/Plan - Narrative Narrative: Diarrhea - unknown cause - possibly acute on chronic diarrhea. - ? chemo induced diarrhea vs c diff vs other infectious diarrhea - check stool studies, occult stool, start probiotics - replace fluids lost in stool with iv fluids Ovarian cancer on chemo - on carboplatin and taxol (? toxic to heart) - possibly contributing to patient's diarrhea. Diabetes with hyperglycemia - continue home diabetic medications with sliding scale insulin prn. - accuchecks q 6 hours due to poor oral intake. lactic acidosis - no evidence of sepsis at this time. blood cultures drawn. urine culture pending. - ? due to patient's significant dehydration. dehydration - BUN in the 40s. - continue IV fluids, encourage oral intake. anemia - history of b12 deficiency - cbc c/w anemia of chronic disease or acute blood loss - check labs in the am. weakness - likely multi-factorial - consult PT/OT elevated BNP - no s/s of fluid overload at this time - will not hydrate aggressively at this time. - given current chemo agents, severe weakness and elevated bnp - will check echo in the am. HTN - continue home meds - orders to hold bp meds for sbp <130 given until hydration status improves. hypothyroidism - check TSH Code Status: pt verbalized her wishes to me to be a DNR. prior DNR in chart. VTE: lovenox and SCDs while in bed. - Assessment/Plan (1) Diarrhea Problem: Acute Qualifiers: Diarrhea type: unspecified type Qualified Code(s): R19.7 - Diarrhea, unspecified (2) Ovarian cancer, BRCA1 positive Problem: Acute Qualifiers: Laterality: right Qualified Code(s): C56.1 - Malignant neoplasm of right ovary; Z15.01 - Genetic susceptibility to malignant neoplasm of breast; Z15.09 - Genetic susceptibility to other malignant neoplasm (3) On antineoplastic chemotherapy Problem: Acute (4) Hyperglycemia Problem: Acute (5) Lactic acidosis Problem: Acute (6) Dehydration Problem: Acute (7) Coronary artery disease Problem: Chronic Qualifiers: Coronary Disease-Associated Artery/Lesion type: bypass graft [place] vs. transplanted heart: [place] heart Associated angina: without angina Qualified Code(s): I25.810 - Atherosclerosis of coronary artery bypass graft(s) without angina pectoris (8) Diabetes Problem: Chronic Qualifiers: Diabetes mellitus type: type 2 Diabetes mellitus complication status: with hyperglycemia Diabetes mellitus children's counselor insulin use: with fci use Qualified Code(s): E11.65 - Type 2 diabetes mellitus with hyperglycemia; Z79.4 - shelter (current) use of insulin (9) Hypertension Problem: Chronic Qualifiers: Hypertension type: essential hypertension Qualified Code(s): I10 - Essential (primary) hypertension (10) Hypothyroidism Problem: Chronic Qualifiers: Hypothyroidism type: acquired Qualified Code(s): E03.9 - Hypothyroidism, unspecified (11) Multiple sclerosis Problem: Chronic (12) Elevated brain natriuretic peptide (BNP) level Problem: Acute (13) Weakness Problem: Acute (14) Anemia Problem: Chronic Qualifiers: Anemia type: unspecified type Qualified Code(s): D64.9 - Anemia, unspecified
[2016-10-24] MEDS: ONDANSETRON HCL 8 MG TABLET PO SCH ×2 (18:47→21:25)
[2016-10-24] MEDS: PROCHLORPERAZINE MALEATE 10 MG TABLET PO SCH ×2 (18:47→23:48)
[2016-10-24] MEDS: INSULIN REGULAR, HUMAN 100 UNITS/ML VIAL SC SCH ×2 (18:48→21:25)
[2016-10-24] MEDS: HYDROmorphone HCL 2 MG TABLET PO SCH ×2 (18:57→21:31)
[2016-10-24] MEDS: LISINOPRIL 10 MG TABLET PO SCH (21:10)
[2016-10-24] MEDS: GABAPENTIN 300 MG CAPSULE PO SCH (21:10)
[2016-10-24] MEDS: INSULIN GLARGINE,HUM.REC.ANLOG 100 UNITS/ML VIAL SC SCH (21:19)
[2016-10-24] MEDS: SACCHAROMYCES BOULARDII 250 MG CAPSULE PO SCH (21:33)
[2016-10-25] MEDS: HYDROmorphone HCL 2 MG TABLET PO SCH ×5 (01:27→17:35)
[2016-10-25] MEDS: ONDANSETRON HCL 8 MG TABLET PO SCH ×4 (01:27→13:35)
[2016-10-25] MEDS: PROCHLORPERAZINE MALEATE 10 MG TABLET PO SCH (05:44)
[2016-10-25 05:49] LABS: Hematocrit 26.6 % (37.0-47.0); Hemoglobin 9.1 gm/dL (12.5-16.0); Mean Corpuscular Hemoglobin 31.5 pg (27-31); Mean Corpuscular Hgb Conc 34.2 g/dl (32-36); Mean Platelet Volume 10.8 fl (6.0-9.5); Platelet Count 117 K/mm3 (150-450); Red Blood Count 2.89 M/mm3 (4.2-5.4); Red Cell Distribution Width 13.3 % (11.5-14.0); White Blood Count 3.6 K/mm3 (4.0-10.5)
[2016-10-25 06:03] LABS: Total Cells Counted 100
[2016-10-25 06:12] LABS: Albumin * 2.5 gm/dl (3.4-5.0); Anion Gap 16.3 mmol/L (6.8-13.8); BUN/Creatinine Ratio 25.3 (9.0-21.6); Bilirubin, Total 0.4 mg/dL (0.0-1.1); Ca. Corrected For Albumin 9.3 mg/dL (8.4-10.2); Calcium * 8.4 mg/dL (7.9-10.9); Carbon Dioxide 21.3 mmol/L (24-32.6); Potassium 3.6 mmol/L (3.4-4.6); TSH * 2.092 uIU/mL (0.358-3.74); Total Protein 6.4 gm/dL (6.2-8.2)
[2016-10-25] MEDS ORDERED: LEVOTHYROXINE SODIUM 125 MCG TABLET PO SCH (06:30)
[2016-10-25 06:32] LABS: Band 17 % (0-2.0); Eosinophil 4 % (0-3); Lymphocyte 13 % (20-51); Monocyte 3 % (0-9); Neutrophil 63 % (42-75); Neutrophil # 2.3 K/mm3 (1.3-6.0); Platelet Estimate Decreased (NORMAL); RBC Morphology Normal (NORMAL)
[2016-10-25] MEDS: INSULIN REGULAR, HUMAN 100 UNITS/ML VIAL SC SCH ×3 (07:03→17:32)
[2016-10-25] MEDS ORDERED: ESCITALOPRAM OXALATE 10 MG TAB PO SCH (09:00)
[2016-10-25] MEDS ORDERED: ISOSORBIDE MONONITRATE 60 MG TAB.SR.24H PO SCH (09:00)
[2016-10-25] MEDS ORDERED: CHOLECALCIFEROL 1,000 UNIT CAPSULE PO SCH (09:00)
[2016-10-25] MEDS ORDERED: CYANOCOBALAMIN 1,000 MCG TABLET PO SCH (09:00)
[2016-10-25] MEDS ORDERED: ATORVASTATIN CALCIUM 40 MG TABLET PO SCH (09:00)
[2016-10-25] MEDS ORDERED: CLOPIDOGREL BISULFATE 75 MG TABLET PO SCH (09:00)
[2016-10-25] MEDS ORDERED: LISINOPRIL 20 MG TABLET PO SCH (10:00)
[2016-10-25] MEDS: SACCHAROMYCES BOULARDII 250 MG CAPSULE PO SCH (10:10)
[2016-10-25] MEDS: GABAPENTIN 300 MG CAPSULE PO SCH (10:11)
[2016-10-25] MEDS: INSULIN GLARGINE,HUM.REC.ANLOG 100 UNITS/ML VIAL SC SCH (10:20)
[2016-10-25] MEDS: LISINOPRIL 10 MG TABLET PO SCH (11:13)
[2016-10-25 14:38] VITALS: BP 126/48
--- NOTE | 2016-10-25 17:19 | DS ---
(1) Diarrhea Problem: Acute Qualifiers: Diarrhea type: unspecified type Qualified Code(s): R19.7 - Diarrhea, unspecified (2) Ovarian cancer, BRCA1 positive Problem: Acute Qualifiers: Laterality: unspecified laterality Qualified Code(s): C56.9 - Malignant neoplasm of unspecified ovary; Z15.01 - Genetic susceptibility to malignant neoplasm of breast; Z15.09 - Genetic susceptibility to other malignant neoplasm (3) On antineoplastic chemotherapy Problem: Acute (4) Hyperglycemia Problem: Acute (5) Lactic acidosis Problem: Acute (6) Dehydration Problem: Acute (7) Coronary artery disease Problem: Chronic Qualifiers: Coronary Disease-Associated Artery/Lesion type: bypass graft [place] vs. 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 use Qualified Code(s): E11.65 - Type 2 diabetes mellitus with hyperglycemia; Z79.4 - half-way (current) use of insulin (9) Hypertension Problem: Chronic Qualifiers: Hypertension type: essential hypertension Qualified Code(s): I10 - Essential (primary) hypertension (10) Hypothyroidism Problem: Chronic Qualifiers: Hypothyroidism type: acquired Qualified Code(s): E03.9 - Hypothyroidism, unspecified (11) Multiple sclerosis Problem: Chronic (12) Elevated brain natriuretic peptide (BNP) level Problem: Acute (13) Weakness Problem: Acute (14) Anemia Problem: Chronic Qualifiers: Anemia type: unspecified type Qualified Code(s): D64.9 - Anemia, unspecified Description of Stay: Abbey is a 66 year old female with a history of HTN, HLP, DM, CAD s/p 4v CABG in 2004, [place], who was recently diagnosed with right ovarian cancer and started on carboplatin and Taxol on 10/19/16 and recommended to complete 6 cycles. Since starting chemotherapy, patient states that her oral intake has become very poor and she has become very weak. Patient c/o diarrhea that has waxing and waning cycles since april but states that since start chemotherapy the diarrhea has become significantly worse. Denies any chest pain or dyspnea. ER evaluation revealed bradycardia with a heart rate in the 50s with sbp in the 90s. She was given 1 liter of NS in the ER. BUN in the ER was found to be in the 40s. Patient was admitted for severe weakness and dehydration needing IV fluids. Abbey was hydrated overnight. Medication changes were made, including stopping her metformin. She was also instructed to call her oncologist for assistance in finding ways to decrease side effects of the chemotherapy. The morning after admission, pt's condition had improved and she was deemed stable enough for discharge. Procedures Performed: none Discharge Disposition: Home self care Disposition: Other home health Condition: Stable Discharge Activity: Activity as tolerated Discharge Diet: General/regular food Referrals: Amanda Duncan MD [Primary Care Provider] - Problem Oriented Discharge Instructions to Patient/Family: Rehydration, Elderly Additional Patient Instructions (free text): [facility]. Please fax orders, face to face, facesheet and call report upon discharge. Fax number:[phone]. Phone: . encourage fluids. encourage oral intake. Follow up with primary care physician in 2-4 weeks. [facility] will call you with appointment tomorrow. Stop Metformin New Medication for Diabetes: Amaryl Prescriptions (Any new or edited meds): Glimepiride [Amaryl] 2 mg PO BID #60 tablet Hydromorphone HCl [Dilaudid] 2 mg PO Q4H #45 tablet Complete Home Medications List: Complete Home Medication List: Aspirin [Aspirin Chewable] 81 mg PO DAILY 11/10/12 Clopidogrel Bisulfate [Plavix] 75 mg PO DAILY 11/10/12 Escitalopram Oxalate [Lexapro] 20 mg PO DAILY 11/10/12 Tizanidine HCl 2 mg PO BID PRN 11/10/12 Nitroglycerin 0.4 mg SL Q5MIN PRN 05/09/13 Isosorbide Mononitrate [Imdur] 60 mg PO DAILY 11/08/13 Gabapentin [Neurontin] 600 mg PO BID 10/31/15 Acetaminophen [Tylenol] 1,000 mg PO Q6H PRN 02/05/16 Cholecalciferol (Vitamin D3) [Vitamin D3] 2,000 unit PO DAILY 02/05/16 Cyanocobalamin (Vitamin B-12) [Vitamin B-12] 500 mcg PO DAILY 02/05/16 Nystatin [Mycostatin Cream] 30 gm TP TID PRN 02/05/16 Atorvastatin Calcium [Lipitor] 80 mg PO DAILY #.1 tablet 02/06/16 Insulin Glargine,Hum.rec.anlog [Lantus] 30 unit SQ BID #2 vial 02/06/16 Levothyroxine Sodium [Levoxyl] 250 mcg PO DAILY@0700 #60 tablet 02/06/16 Lisinopril [Zestril] 20 mg PO BID #60 tablet 02/06/16 Lidocaine [Lidoderm 5%] 1 patch TP DAILY PRN 10/24/16 Ondansetron HCl [Zofran] 8 mg PO Q4H 10/24/16 Prochlorperazine Maleate [Compazine] 10 mg PO Q6H 10/24/16 Glimepiride [Amaryl] 2 mg PO BID #60 tablet 10/25/16 Hydromorphone HCl [Dilaudid] 2 mg PO Q4H #45 tablet 10/25/16 Sulfamethoxazole/Trimethoprim [Bactrim Ds] 1 tab PO BID #28 tab 10/27/16
[2016-10-25] MEDS ORDERED: ROSUVASTATIN CALCIUM 10 MG TABLET PO SCH (21:00)
--- NOTE | 2016-10-26 11:15 | ECHO ---
This report is available in the EMR
== END 2016-10-25 19:00 | disposition home health service (06) ==
LOC: ER 10:43 → MS 14:42
PROVIDERS: ADMIT Nurse Practitioner Critical Care Medicine; ATTEND Family Medicine
PROC: 0T9B70Z Drainage of Bladder with Drainage Device, Via Natural or Artificial Opening (ICD-10-PCS; principal; 2016-10-24)
DX: R19.7 Diarrhea, unspecified (principal); E86.0 Dehydration; C56.1 Malignant neoplasm of right ovary; Z15.01 Genetic susceptibility to malignant neoplasm of breast; E87.2 Acidosis; I25.810 Atherosclerosis of coronary artery bypass graft(s) without angina pectoris; E11.65 Type 2 diabetes mellitus with hyperglycemia; Z79.4 Long term (current) use of insulin; I10 Essential (primary) hypertension; E03.9 Hypothyroidism, unspecified; G35 Multiple sclerosis; D64.9 Anemia, unspecified; R78.89 Finding of other specified substances, not normally found in blood
CPT/HCPCS: 36415; 51702; 71010; 80053; 81001; 82140; 82150; 83540; 83550; 83605; 83690; 83880; 84145; 84443; 84484; 85007; 85025; 87040; 87081; 87086; 93306; 96360; 96361; 96365; 96372; 97161; 97165; 99284; G0378; G8978; G8979; G8980; G8987; G8988; G8989

== ENCOUNTER 2016-10-27 09:08 | Emergency (ER) | payer MEDICARE, OTHER ==
[2016-10-27] MEDS ORDERED: KETOROLAC TROMETHAMINE 60 MG/2 ML VIAL IM ONE ×2 (11:04→11:12)
--- OUTSIDE RECORDS SUMMARY | 2016-10-27 11:07 | XMS REPORT | Continuity of Care Document ---
:1950 Author Organization [facility] ([facility]) Address [address] [place] [address] Phone [phone] Care Team Providers Name Role Phone Amanda Duncan Primary Care Provider [phone] Source Comments This disclosure is being made pursuant to the Care Everywhere program, applicable federal and state laws, and may not contain all informaitonavailable regarding this patient.[facility] ([facility]) Active Allergies and Adverse Reactions No Known [...] Take 1 tablet (250 42 tablet 0 09/20/19/12/31 phosphates 250 mg mg total) by mouth [...] Atherosclerosis of coronary artery bypass graft of deering heart without 2013 angina pectoris Presence of [...] DAVIDSON-Dx. Successful intervention on Cx-M3 - 2.012 [place] PTCA, 2.25 Xience Xpedition to final 0% at site of stent. Diffuse disease in the M3 distal to the stent. Successful intervention on RPDA through the SVG - 2.0/12 [place] PTCA, 2. Xience Xpedition to final 0%. 11/23/2012 ECHO [...] negative. - Will request more records from [facility] including: discharge summaries, H&P, consultation reports, images from prior CTs/ MRIs. - Labs today: CBC, BMP, LFT, ESR/CRP. - Follow up in ID clinic in 4 weeks after review of the information above. - If episodes recur prior to appointment, pt is encouraged to come to [facility] ED if possible for further evaluation. Type 2 diabetes mellitus 12/28/2010 08/25/2016 Most Recent Encounters Date Type Specialty Providers Description 10/27/2016 Telephone OB Reproductive Olivia Long, Chief Comp: ROLLY Follow-up 10/26/2016 Telephone [facility] Hematology and Amada López Chief Comp: Other Oncology Gisselle 10/25/2016 Telephone Cancer Center Leodan Pan 10/20/2016 Telephone Cancer Center Deborah Cordova, Chief Comp: RN Appointment Info 10/19/2016 Office Visit Cancer Center Default, Other Dx: Ovarian cancer Billg - Defo on right Cynthia Hugo, RAFY LD 10/19/2016 Office Visit [facility] [place] Default, Other Dx: BRCA1 genetic Billg - 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 (Primary Dx) Reny Palmer, DOT 10/19/2016 Hospital Cancer Infusion Juan Francisco De Oliveira, Dx: Rib pain on left Encounter Center MD side (Primary Dx) 10/19/2016 Office Visit Pathology Juan Francisco De Oliveira, Chief Comp: Patient MD Reported Reason For Lab Services, Visit Pfp 10/19/2016 Office Visit OBG Reproductive Juan Francisco De Oliveira, Dx: Chemotherapy MD management, Clinic, Commercial Engineer Onc encounter for Advanced (Primary Dx) Practice Provider 10/19/2016 Orders/Notes Clinical Fellow Tia Diaz, Chief Comp: Other CORRECTION OFFICER 10/19/2016 Pharmacy Visit 10/18/2016 Office Visit OBG Reproductive Juan Francisco De Oliveira, Chief Comp: Patient MD Reported Reason For Clinic, Commercial Engineer Onc Visit Advanced Practice Provider 10/14/2016 Telephone Cancer Center ArtDeborah valiente, Chief Comp: RN Follow-up 10/12/2016 Telephone [facility] [place] Jeni Nicholson Chief Comp: Cindy Baez RN 10/12/2016 Orders/Notes Cancer Center Jeni Nicholson RN 10/12/2016 Telephone Cancer Center Reny Palmer Chief Comp: Discuss A, CGC Test Results 10/06/2016 Office Visit OBG Reproductive Srinivasa, Chief Comp: Patient MD Mario Alberto Reported Reason For Visit 10/06/2016 Orders/Notes Obstetrics [place] Grewal, FIELD CLINICAL ENGINEER 10/04/2016 Office Visit Cancer Center Default, Other Dx: Family history Billg - Defo of breast cancer Juan Francisco De Oliveira, (Primary Dx) Reny Al, CGC 10/04/2016 Office Visit OBG Reproductive Srinivasa, Dx: Postoperative MD Mario Alberto urinary tract Juan Francisco De Oliveira, infection (Primary MD Dx) 10/04/2016 Office Visit Internal Medicine - Shahram Colón, Dx: Low hemoglobin Primary MD (Primary Dx) Cynthia An ARNP 10/04/2016 Office Visit Pathology Cynthia An, Chief Comp: Patient ANNALISE Reported Reason For Lab Services, Visit Irl 09/[facility]: [facility] Follow-up 09/29[facility] Chief Comp: Return RN Call 09/29/2016 [facility] [place] Cynthia Cevallos, Dx: Ovarian cancer, RN unspecified laterality (Primary Dx) 09/21/2016 Nurse Triage General Care Candy Baumann Chief Comp: IP Inpatient - Adult E, deck supervisor Follow-up Call 09/21/2016 Orders/Notes [facility] [place] Juan Francisco De Oliveira MD 09/21/2016 Orders/Notes [facility] [place] Juan Francisco De Oliveira MD 09/17/2016 [facility] General Care Juan Francisco De Oliveira, Dx: Adnexal mass - Encounter Inpatient - Adult (Primary Dx) 09/20/2016 09/17/2016 Surgery General Surgery Juan Francisoc De Oliveira, OOPHORECTOMY, ABDOMINAL, Abd Hernia repair [...] Medicine - Cynthia An, Chief Comp: Primary FIELD CLINICAL ENGINEER Appointment Request 08/26/2016 [facility] Reva, Dx: Syncopal Encounter MD Karyna episodes 08/26/2016 [facility] Jose, Chief Comp: Patient [...] Oliveira, Dx: Syncopal MD episodes Lab Services, Pfp 08/26/2016 [facility] Radiology Avelino Obrien, Dx: Syncopal Encounter MD episodes 08/26/2016 [facility] Anesthesiology Juan Francisco De Oliveira, Chief Comp: Patient Encounter MD Reported Reason For Visit 08/26/2016 Office Visit Cardiac Gissell Fregoso MD Dx: Ischemic Rehabilitation cardiomyopathy (Primary Dx) 08/26/2016 Office Visit Cardiac Gissell Fregoso MD Dx: Murmur Rehabilitation 08/25/2016 Anesthesia Event General Surgery Corbin Sánchez 08/23/2016 Telephone Cardiac Gissell Fregoso MD Chief Comp: Other Rehabilitation 08/09/2016 [facility] Radiology Juan Francisco Fuchs, Dx: Syncopal Encounter [...] 1.651 m (5' 5") 10/04/2016 12:38 PM OPERATIONS ADMINISTRATIVE ASSISTANT Weight 63.95 kg (140 lb 15.8 oz) 10/19/2016 9:35 AM CDT Body Mass Index 23.46 10/19/2016 9:35 AM CDT Oxygen Saturation 100% 10/19/2016 12:33 PM CDT Plan of Care Date Type Specialty Providers Description 03/21/2017 Appointment OBG Reproductive Juan Francisco De Oliveira MD Chief Comp: Patient [address] [place] [address] Visit [phone] (Fax) Health Maintenance Due Date Last Done [...] Adnexal mass Results for this BILLING STAFF OPERATIONS ADMINISTRATIVE ASSISTANT procedure are in the results section. OOPHORECTOMY, 09/17/2016 7:30 AM Adnexal mass ABDOMINAL, Abd OPERATIONS ADMINISTRATIVE ASSISTANT Hernia repair Case Notes hernia repair + Unilateral salpingooophorectomy Results from Last 3 Months DIFFERENTIAL (10/19/2016 9:20 AM)Only the most recent of3 resultswithin the time period is included. Component Value Range % Neutrophils-Auto Diff 63.9 % Neutrophils-Auto Diff 4700 2564-4639 /MM3 % Lymphocytes-Auto Diff 22.9 % Lymphocytes-Auto Diff 5152 702-1875 /MM3 % Monocytes-Auto Diff 8.8 % Monocytes-Auto [...] Abnormality Status --------- ------ CBC (COMPLETE BLOOD COUNT)[[id number]] AbnormalFinal result DIFFERENTIAL[[id number]] Final result Please view results for these tests on the individual orders. MISCELLANEOUS TEST, GENETIC (10/04/2016 3:21 PM) Component Value Range Miscellaneous Test, Genetic See ScanComment: Find scanned test results for [employer] with hereditary breast and ovarian cancer panel by going to the Order Report, then clicking the Results Document hyperlink. For [employer] user the scan result report is not [...] 3+(A) Negative Nitrite, Urine Negative Negative Spec [place], Urine 1.020 1.000-1.030 Specimen Urine URINE CULTURE, [...] AT 830AM Normal 211 - 946 pg/mL [id number] - 210 pg/mL Deficient<150pg/mL Specimen Blood RETICULOCYTES [...] RBC 0 /100 WBC Specimen Whole Blood BUILDING INSPECTOR OR CASE (09/19/2016 9:07 PM) Narrative Juan Francisco De Oliveira MD 09/19/20169:07 PM OR CASE: OOPHORECTOMY, ABDOMINAL Post-Op Procedure Note General Information: Date: 09/17/16 Time: 729 Location: MAIN OR OR Room: [facility] OR Service: Gynecology Log ID: [id number] Operation/Procedure: Exploratory Laparotomy Lysis of Adhesions Bilateral [...] MD Staff Information: Scrub Nurse: Crissy Cao RN Circulating Nurse: Magalis Gomes RN; Olivia Cao RN Dry Talc Racker- Scrub: Elinor Rodarte; Ne Mendoza Anesthesia: General [...] heprin 1,000 units Cytology Cytology Specimen CYTOLOGY NON-BUILDING INSPECTOR EXAM Juan Francisco De Oliveira MD 09/17/2016 [...] right diaphagmatic smear Cytology Cytology Specimen CYTOLOGY NON-BUILDING INSPECTOR EXAM Juan Francisco De Oliveira MD 09/17/2016 1051 19 : left diaphagmatic smear Cytology Cytology Specimen CYTOLOGY NON-BUILDING INSPECTOR EXAM Juan Francisco De Oliveira MD 09/17/2016 [...] Gynecologic Oncology Department of Obstetrics and Gynecology [facility] [phone] [email or web address] (09/17/2016 9:55 PM) Component Value Range Hemoglobin 9.8(L) 11.9-15.5 g/dL Specimen Whole Blood SURGICAL PATHOLOGY EXAM (09/17/2016 8:48 AM) Component Value Range Case Report Surgical Pathology Case: [id number] Authorizing Provider:Juan Francisco De Oliveira MDCollected: 09/17/2016 [...] section in a container labeled with Abbey Tan, hospital number and "right tube and ovary" [...] surface (approximately 10%) is white-recinos and dense. Longwall Foreman sections are frozen as A1. Longwall Foreman sections are submitted as follows: A1: frozen section remnant A2-A8: client care representative sections of mass (recinos-white dense portion in A4 and A5 ) TERI/nica B.Received fresh in a container labeled with DominickAbbey, [facility] number and "left tube and ovary" is [...] to 0.2 cm diameter.It is grossly unremarkable. Longwall Foreman sections are submitted as follows: B1: ovary B2: fallopian tube and cross section and fimbriated end NIKITAF/nica C.Received fresh for frozen section in a container labeled with Abbey Tan, [facility] number and "omentum" is a 9.0 x 4.2 x 3.0 cm fragment of dark yellow and firm fibroadipose tissue consiste nt with omentum resection.The specimen is serially sectioned to reveal a dark yellow, homogeneous, firm and mucinous cut surface of necrotic fat.No discrete masses or lesions are identified. Longwall Foreman sections are frozen as C1. Longwall Foreman sections are submitted as follows: C1: frozen section remnant C2: additional sections TERI/nica D.Received fresh in a container labeled with Abbey Tan, [facility] number and "omentum" is a 30.0 x 22.0 cm wide x up to 2.0 cm thick fragment of pink-yellow, lobulated fibroadipose tissue con sistent with omental resection.Sectioning reveals a single 0.5 x 0.5 x 0.4 cm firm nodule.The remaining cut surface if yellow-recinos, soft and lobulated fibroadipose tissue. Longwall Foreman sections are submitted as follows: D1: nodule D2: omentum NIKITAF/nica E.Received fresh in a container labeled with Abbey Tan, [facility] number, and "omentum #2" is a 3.3 x 2.3 x 1.8 cm unoriented segment of recinos- yellow, lobular to nodular fibrofatty tissue.Sec tioning reveals recinos-yellow, firm to gritty cut surfaces, grossly consistent with fat necrosis.Longwall Foreman sections of nodule are frozen with remnant in E1. Additional client care representative sections ofspecimen are submitted in E2. LRL/tkr F.Received fresh in a container labeled with Abbey Tan, [facility] number, and "left pelvic side wall peritoneum" is a 2.0 x 2.0 x 0.5 cm fragment of fibromembranous tissue with adherent fibro adipose tissue.One surface is pink-red and smooth.The opposite is ragged, soft fibroadipose tissue. The specimen is serially sectioned and entirely submitted in F1. AJF/tkr G.Received fresh in a container labeled with Abbey Tan , [facility] number, and "left pelvic lymph nodes" is [...] a container labeled with Abbey Tan , [facility] number, and "left para aorticlymph nodes" is [...] a container labeled with Abbey Tan , [facility] number, and "left para colic gutter biopsy" is a 2.0 x 1.7 x 0.3 cm fragment of pink-purple fibromembranous tissue.One olivera rface is smooth with the opposite surface exhibiting adherent recinos-yellow fibroadipose tissue. The specimen is serially sectioned and entirely submitted in I1. AJF/tkr J.Received fresh in a container labeled with Abbey Tan , [facility] number, and "right pelvic side wall" is a 1.7 x 1.0 x 0.4 cm fragment of purple- pink fibromembranous tissue.One surface i s smooth with the opposite surface exhibiting adherent yellow-recinos soft fibroadipose tissue. The specimen is serially sectioned and entirely submitted in J1. AJF/tkr K.Received fresh in a container labeled with DominickAbbey , [facility] number, and "right pelvic lymph nodes" is [...] Re[facility] fresh [facility] a [facility] number, and "right para aortic" is a 3.5 x 1.4 x 0.9 cm fragment of yellow-red fibroadipose tissue.Sectioning reveals a 1.2 x 0.7 x 0.5 cm recinos-purple possible lymph node.The possible lymph node is serially sectioned and entirely submitted in L1. AJF/tkr M.Received fresh in a container labeled with [facility] , [facility] number, and "anterior cul de sac" is a 1.9 x 1.2 x 0.4 cm fragment of purple- pink fragment of fibromembranous tissue.One surface is smooth with the opposite ragged and exhibits minimal cautery. The specimen is serially sectioned and entirely submitted in M1. AJF/tkr N.Received fresh in a container [facility] with [facility] number, and "posterior cul de sac" is a 2.0 x 0.4 x 0.2 cm fragment of purple- pink fibromembranous tissue. The specimen is entirely submitted in N1. AJF/tkr O.Received fresh in a container labeled with [facility], [facility] number, and "right para colic gutter biopsy" [...] Peritoneum; Surgical Pathology - Lymph Node CYTOLOGY NON-BUILDING INSPECTOR EXAM (09/17/2016 8:23 AM) Component Value Range Case Report Non-Commercial Engineer Cytopathology Case: [id number] Authorizing Provider:Juan Francisco De Oliveira MDCollected: 09/17/2016 [...] Procedure Note [place], Incoming Imaging Results - [facility] Aug 26, 2016 4:11 PM OPERATIONS ADMINISTRATIVE ASSISTANT Procedure: CHEST- PA & LATERAL Clinical Indication: [...] Doppler, Color Flow and image documentation ( [id number]) I personally viewed the echocardiogram and approve the above interpretation Inf. Vena Cava (IVC) / Pulm. Veins A normal IVC diameter which collapses greater than 50% would support an normal RA pressure of 3 mmHg (range 0-5mmHg). Primary ICD-9 Code Coronary atherosclerosis of deering coronary artery (414.01) IVSd 1.0 cm LVIDd [...] 60 Reason For Study Assess Cardiac Function Aquatic Director Mary Burciaga Interpreting Physician Gissell Fregoso electronically [...] performed at 1003 hours on 07/23/2016 at [facility]. 203 images are provided and interpreted [...] - Tue Aug 10, 2016 8:42 AM OPERATIONS ADMINISTRATIVE ASSISTANT Outside film interpretation requested. Patient name: Abbey Tan. Exam was performed at 1003 hours on 07/23/2016 at [facility]. 203 images are provided and interpreted [...]
--- OUTSIDE RECORDS SUMMARY | 2016-10-27 11:07 | XMS REPORT | Continuity of Care Document ---
:1950 Author Organization [facility] [place] [address] Care Team Providers Name Role Phone Unavailable Primary Care Provider Unavailable Source Comments This disclosure is being made pursuant to the Galenea program and maynot contain all information available regarding this patient.[facility] Active Allergies and Adverse Reactions Not on [...]
[2016-10-27 11:26] LABS: Hematocrit 25.2 % (37.0-47.0); Hemoglobin 8.4 gm/dL (12.5-16.0); Mean Cell Volume 92.3 fl (78-100); Mean Corpuscular Hemoglobin 30.8 pg (27-31); Mean Corpuscular Hgb Conc 33.3 g/dl (32-36); Mean Platelet Volume 10.3 fl (6.0-9.5); Platelet Count 130 K/mm3 (150-450); Red Blood Count 2.73 M/mm3 (4.2-5.4); Red Cell Distribution Width 13.1 % (11.5-14.0); White Blood Count 3.9 K/mm3 (4.0-10.5)
[2016-10-27 11:35] LABS: Total Cells Counted 100
[2016-10-27 11:40] LABS: ALT 72 U/L (19-67); AST 92 U/L (0-48); Albumin * 2.2 gm/dl (3.4-5.0); Alkaline Phosphatase * 136 U/L (50-170); Anion Gap 15.5 mmol/L (6.8-13.8); BUN/Creatinine Ratio 22.8 (9.0-21.6); Bilirubin, Total 0.3 mg/dL (0.0-1.1); Blood Urea Nitrogen 28 mg/dL (3-23); Ca. Corrected For Albumin 10.3 mg/dL (8.4-10.2); Calcium * 9.2 mg/dL (7.9-10.9); Chloride 95 mmol/L (97-106); Glucose * 231 mg/dL (70-110); Potassium 3.5 mmol/L (3.4-4.6); Sodium 129 mmol/L (132-142); Total Protein 6.7 gm/dL (6.2-8.2)
[2016-10-27 11:56] LABS: Atypical (Reactive) Lymph 2 % (0-2); Band 6 % (0-2.0); Eosinophil 3 % (0-3); Immature Granulocyte 1 (0-1); Lymphocyte 6 % (20-51); Monocyte 16 % (0-9); Neutrophil 66 % (42-75); Neutrophil # 2.6 K/mm3 (1.3-6.0)
[2016-10-27 11:57] LABS: Hypochromia 1+; Platelet Estimate Decreased (NORMAL)
[2016-10-27 11:59] LABS: Toxic Granulation Trace
[2016-10-27 12:03] LABS: Urine Bilirubin Negative (NEGATIVE); Urine Blood 50 /ul (NEGATIVE); Urine Ketone Negative (NEGATIVE); Urine Nitrite Negative (NEGATIVE); Urine Protein 100 mg/dL (NEGATIVE); Urine Specific Gravity 1.025 SP.GR. (1.005-1.010); Urine Urobilinogen Normal (NORMAL)
[2016-10-27 12:20] LABS: Urine Appearance Slightly Cloudy; Urine Bacteria 3+; Urine Color Yellow; Urine RBC >50 /hpf (0-5); Urine WBC >50 /hpf (0-5)
[2016-10-27] MEDS ORDERED: NORMAL SALINE 1,000 ML IV ONE (12:39)
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
[2016-10-27 14:51] VITALS: BP 129/60
== END 2016-10-27 14:57 | disposition home or self-care (01) ==
LOC: ER 09:08
DX: S70.12XA Contusion of left thigh, initial encounter (principal); N30.01 Acute cystitis with hematuria; C56.9 Malignant neoplasm of unspecified ovary; E86.0 Dehydration; R53.1 Weakness; W06.XXXA Fall from bed, initial encounter